=== PATIENT | male | born 1945 | race Caucasian/White ===

== ENCOUNTER 2017-10-22 09:05 | Outpatient (CLI) | payer MEDICARE ==
[2017-10-22 11:08] LABS: #Eosinphils 0.2 thou/uL (0.0-0.7); #Lymphocytes 0.7 thou/uL (1.20-3.40); #Monocytes 0.6 thou/uL (0.11-0.59); #Neutrophils 3.9 thou/uL (1.40-6.50); %Basophils 0.2 % (0.0-1.0); %Eosinophils 3.6 % (0.0-10.0); %Lymphocytes 13.7 % (21.0-51.0); %Monocytes 10.2 % (0.0-10.0); %Neutrophils 72.3 % (42.0-75.0); Hemoglobin 12.7 g/dL (14.0-18.0); Mean Corpuscular HGB CONC 33.2 g/dL (32.0-36.0); Mean Corpuscular Hemoglobin 30.3 pg (27.0-31.0); Mean Corpuscular Volume 91.3 fl (80.0-94.0); Platelet Count 65 thou/uL (130-400); RBC Distribution Width 12.6 % (11.5-14.5); Red Blood Cell (RBC) Count 4.19 mill/uL (4.70-6.10); White Blood Cell (WBC) Count 5.3 thou/uL (4.8-10.8)
[2017-10-22 11:29] LABS: Anion Gap 7 mmol/L (10-20); BUN (Urea Nitrogen) 16 mg/dL (8.4-25.7); Calc. Creatinine Clearance 0 mL/min (70-130); Calcium 9.1 mg/dL (7.8-10.44); Carbon Dioxide 25 mmol/L (23-31); Chloride 104 mmol/L (98-107); Estimated GFR-MDRD Greater than 90; Glucose 302 mg/dL (83-110); Potassium 4.4 mmol/L (3.5-5.1); Sodium 132 mmol/L (136-145)
--- NOTE | 2017-10-22 21:08 | EKG ---
Test Reason : Blood Pressure : / mmHG Vent. Rate : 058 BPM Atrial Rate : 058 BPM P-R Int : 266 ms QRS Dur : 082 ms QT Int : 462 ms P-R-T Axes : 057 014 131 degrees QTc Int : 453 ms Sinus bradycardia with 1st degree A-V block Minimal voltage criteria for LVH, may be normal variant ST elevation consider inferior injury or acute infarct (doubtul) with marked T wave changes anterolat erally. Abnormal ECG When compared with ECG of 17-NOV-2016 12:14, No significant change was found Confirmed by KALYAN VILLAGOMEZ ([id number]) on 10/22/2017 9:08:18 PM Referred By: KAYKAY Confirmed By:KALYAN VILLAGOMEZ
== END 2017-10-22 09:06 | disposition home or self-care (01) ==
LOC: LABBT 09:05
PROVIDERS: ATTEND Surgery
DX: Z01.818 Encounter for other preprocedural examination (principal); K40.90 Unilateral inguinal hernia, without obstruction or gangrene, not specified as recurrent; R94.31 Abnormal electrocardiogram [ECG] [EKG]
CPT/HCPCS: 80048; 85025; 93005; 93010

== ENCOUNTER 2017-10-23 05:49 | Day surgery (SDC) | payer MEDICARE ==
[2017-10-22 09:31] VITALS: BMI 22.7
[2017-10-23] MEDS ORDERED: CEFAZOLIN/Water 2 GM/20 ML SYRINGE ONE (06:05)
[2017-10-23] MEDS ORDERED: HYDROmorphone 0.5 MG/0.5 ML SYRINGE ONE (06:07)
[2017-10-23] MEDS ORDERED: Fentanyl 100 MCG/2 ML VIAL ONE (06:07)
[2017-10-23] MEDS ORDERED: Bupivacaine PF 0.5% 30 ML VIAL ONE (06:49)
[2017-10-23] MEDS ORDERED: Bupivacaine 0.25% HCL 30 ML VIAL ONE (06:49)
[2017-10-23] MEDS ORDERED: Lidocaine 2% 10 ML INJ ONE (06:49)
[2017-10-23] MEDS ORDERED: Scopolamine 1.5 mg/72 hour Patch ONE (07:43)
--- NOTE | 2017-10-23 11:18 | OP ---
DATE OF PROCEDURE: 10/23/2017 PREOPERATIVE DIAGNOSIS: Left inguinal hernia. POSTOPERATIVE DIAGNOSIS: Left inguinal hernia. PROCEDURE: Left inguinal hernia repair with mesh. SURGEON: Leonard Aparicio M.D. ANESTHESIA: General. ESTIMATED BLOOD LOSS: Minimal. COMPLICATIONS: None. SPECIMEN: None. FINDINGS: Left inguinal hernia. TECHNIQUE: The patient was taken to the operating room, placed supine on the table. After general a nesthetic was obtained, his abdomen and groins are shaved, and draped in a sterile fashion. Straight incision made above the pubic tubercle and the left lower quadrant. Cautery dissected down through April's to expose the external oblique, external oblique fibers opened along the course of the exter nal ring. The contents of inguinal canal were dissected away from the backside of the inguinal ligam ent. The cord structures were mobilized on the pubic tubercle using a Olivia drain. Dissection sup erior medially on the cord showed there to be a large indirect hernia sac. It was transected distall y and a high ligation was performed proximally using silk suture. The stump is inverted back into th e abdominal cavity. The precut polypropylene mesh was brought into the sterile field. It was sewn d istally to the pubic tubercle, medially to the transverse arch, laterally to the shelving edge of ing uinal ligament using permanent braided suture, it was cut laterally to wrap around the internal ring and the 2 ends reapproximated at the shelving edging of inguinal ligament to reform the internal ring . The extra mesh is tucked back under the external oblique proximally. The wound was irrigated. Lo francisco anesthetic is applied. Tunneled catheter for postop pain threaded from above the incision, left on top of the mesh. External oblique is closed in 3-0 Vicryl. April's closed in 3-0 Vicryl. Skin was closed with running 4-0 Monocryl and Dermabond. The patient was en route to recovery in stable c ondition. All instrument counts, needle counts, lap counts are correct.
[2017-10-23] MEDS ORDERED: Ondansetron HCl/PF 4 MG/2 ML Vial ONE (13:37)
[2017-10-23] MEDS ORDERED: ePHEDrine/0.9% NaCl/PF SYRINGE 50 mg/10 ml ONE (13:37)
[2017-10-23] MEDS ORDERED: PROPOFOL 200 MG/20 ML VIAL ONE (13:37)
[2017-10-23] MEDS ORDERED: Succinylcholine Chloride 20 MG/ML 10 ml SYRINGE FS ONE (13:37)
[2017-10-23] MEDS ORDERED: Lidocaine 1% PF 5 ML VIAL ONE (13:37)
== END 2017-10-23 10:30 | disposition home or self-care (01) ==
LOC: SDC 05:49
PROVIDERS: ATTEND Surgery
PROC: 0YU60JZ Supplement Left Inguinal Region with Synthetic Substitute, Open Approach (ICD-10-PCS; principal; 2017-10-23)
DX: K40.90 Unilateral inguinal hernia, without obstruction or gangrene, not specified as recurrent (principal); K74.60 Unspecified cirrhosis of liver; K21.9 Gastro-esophageal reflux disease without esophagitis; I42.8 Other cardiomyopathies; E11.9 Type 2 diabetes mellitus without complications; E07.9 Disorder of thyroid, unspecified; Z87.891 Personal history of nicotine dependence; Z79.899 Other long term (current) drug therapy; Z79.84 Long term (current) use of oral hypoglycemic drugs; Z98.890 Other specified postprocedural states
CPT/HCPCS: 49505; 82962; A4306; C1781; 36416; J0131; J1170; J2001; J2405; J2704; J3010; S0020

== ENCOUNTER 2018-01-31 10:18 | Outpatient (CLI) | payer MEDICARE ==
[2018-01-31] MEDS ORDERED: Gadobenate Dimeglumine 529 MG/1 ML (20ML VIAL) ONE (13:14)
== END 2018-01-31 10:19 | disposition home or self-care (01) ==
LOC: BICMRI 10:18
PROVIDERS: ATTEND Internal Medicine Gastroenterology
DX: K74.60 Unspecified cirrhosis of liver (principal); R16.1 Splenomegaly, not elsewhere classified
CPT/HCPCS: 74183; A9579

== ENCOUNTER 2018-09-23 09:03 | Emergency (ER) | payer MEDICARE ==
[2018-09-23 09:56] LABS: Mean Corpuscular HGB CONC 32.9 g/dL (32.0-36.0); Mean Corpuscular Hemoglobin 28.3 pg (27.0-31.0); Mean Platelet Volume 9.3 fL (7.4-10.4); Platelet Count 59 thou/uL (130-400); RBC Distribution Width 15.1 % (11.5-14.5); Red Blood Cell (RBC) Count 4.26 mill/uL (4.70-6.10); White Blood Cell (WBC) Count 9.3 thou/uL (4.8-10.8)
[2018-09-23 10:15] LABS: ALT (SGPT) 29 U/L (8-55); AST (SGOT) 33 U/L (5-34); Albumin 3.1 g/dL (3.4-4.8); Alkaline Phosphatase 155 U/L (40-150); Anion Gap 12 mmol/L (10-20); BUN (Urea Nitrogen) 21 mg/dL (8.4-25.7); Bilirubin, Total 0.9 mg/dL (0.2-1.2); Calc. Creatinine Clearance 0 mL/min (70-130); Calcium 8.8 mg/dL (7.8-10.44); Carbon Dioxide 21 mmol/L (23-31); Chloride 103 mmol/L (98-107); Estimated GFR-MDRD 71; Globulin 3.8 g/dL (2.4-3.5); Glucose 288 mg/dL (83-110); Potassium 3.8 mmol/L (3.5-5.1); Protein, Total 6.9 g/dL (5.8-8.1); Sodium 132 mmol/L (136-145)
[2018-09-23 10:17] LABS: #Lymphocytes 0.7 thou/uL (1.20-3.40); #Monocytes 0.9 thou/uL (0.11-0.59); #Neutrophils 7.6 thou/uL (1.40-6.50); %Basophils 0.2 % (0.0-1.0); %Eosinophils 0.1 % (0.0-10.0); %Lymphocytes 7.2 % (21.0-51.0); %Monocytes 10.2 % (0.0-10.0); %Neutrophils 82.3 % (42.0-75.0); Anisocytosis SLIGHT = 6-15 cells (100X) (0-5/hpf); MDiff Complete? YES; Platelet Morphology Comment Appears Decreased
--- NOTE | 2018-09-23 10:20 | RAD ---
PA AND LATERAL VIEWS CHEST: Date: 09/23/18 HISTORY: Cough. FINDINGS: The heart size is normal. The lungs are expanded without focal areas of consolidation, pneumothoraces , or pleural effusions. No acute osseous abnormalities are seen. IMPRESSION: No radiographic evidence of acute cardiopulmonary process. POS: [facility]
== END 2018-09-23 10:51 | disposition home or self-care (01) ==
LOC: ERS 09:03
DX: J10.1 Influenza due to other identified influenza virus with other respiratory manifestations (principal); E11.9 Type 2 diabetes mellitus without complications; Z79.899 Other long term (current) drug therapy; Z79.84 Long term (current) use of oral hypoglycemic drugs
CPT/HCPCS: 36415; 36416; 71046; 80053; 85025; 87804

== ENCOUNTER 2018-09-28 20:20 | Inpatient (IN) | payer MEDICARE ==
[~2018-09-28 20:20] MED LIST: ISOVUE-370 76%-LOCM 1 ML ONE
--- NOTE | 2018-09-28 20:58 | RAD ---
CHEST ONE VIEW: 09/28/18 HISTORY: Headache, diarrhea, weakness. Confused. COMPARISON: 09/23/18. FINDINGS: Monitor leads overlie the chest. Heart size is within normal limits. The lungs are clear. No pneumoni a, edema, or pleural effusion. IMPRESSION: No acute intrathoracic disease. POS: [facility]
[2018-09-28 21:06] LABS: INR-International Normal Ratio 1.5; PTT 45.5 SEC (22.9-36.1); Prothrombin Time 18.2 SEC (12.0-14.7)
--- NOTE | 2018-09-28 21:10 | CT ---
CT BRAIN: 09/28/18 HISTORY: Headache. Confusion. Noncontrast enhanced CT images of the brain obtained. Brain and bone windows obtained. Brain and bone windows obtained. CT images of the brain demonstrate the brain to be unremarkable. No evidence of intracranial masses, hemorrhages, strokes or contusions seen. Ventricles are of normal size. IMPRESSION: Normal CT brain. POS: [facility]
[2018-09-28 21:14] LABS: ALT (SGPT) 114 U/L (8-55); AST (SGOT) 69 U/L (5-34); Albumin 2.9 g/dL (3.4-4.8); Alkaline Phosphatase 205 U/L (40-150); Anion Gap 15 mmol/L (10-20); BUN (Urea Nitrogen) 74 mg/dL (8.4-25.7); Bilirubin, Total 1.6 mg/dL (0.2-1.2); Calc. Creatinine Clearance 0 mL/min (70-130); Calcium 9.3 mg/dL (7.8-10.44); Carbon Dioxide 14 mmol/L (23-31); Chloride 105 mmol/L (98-107); Estimated GFR-MDRD 29; Globulin 3.9 g/dL (2.4-3.5); Glucose 170 mg/dL (83-110); Lipase 23 U/L (8-78); Potassium 3.5 mmol/L (3.5-5.1); Protein, Total 6.8 g/dL (5.8-8.1); Sodium 130 mmol/L (136-145)
[2018-09-28] MEDS ORDERED: Ondansetron PF 4 MG/2 ML Vial ONE (21:14)
[2018-09-28 21:16] LABS: Anisocytosis SLIGHT = 6-15 cells (100X) (0-5/hpf); Band 14 % (5-11); Lymphocytes 6 % (21-51); MDiff Complete? YES; Mean Corpuscular HGB CONC 31.8 g/dL (32.0-36.0); Mean Corpuscular Hemoglobin 27.4 pg (27.0-31.0); Mean Corpuscular Volume 86.2 fL (78.0-98.0); Mean Platelet Volume 10.2 fL (7.4-10.4); Monocytes 6 % (0-10); Neutrophil 74 % (42-75); Platelet Count 65 thou/uL (130-400); Platelet Morphology Comment Appears Decreased; RBC Distribution Width 15.3 % (11.5-14.5); Red Blood Cell (RBC) Count 5.09 mill/uL (4.70-6.10); White Blood Cell (WBC) Count 16.4 thou/uL (4.8-10.8)
--- NOTE | 2018-09-28 21:32 | CT ---
CONTRAST ENHANCED CT IMAGES ABDOMEN AND PELVIS 09/28/18 HISTORY: Followup flu, diarrhea, weakness. Contrast enhanced CT images of the abdomen and pelvis is obtained after administration of IV contrast . Unfortunately oral contrast was not given. CT images demonstrate the lung bases to be unremarkable. No evidence of free intraperitoneal air seen . A moderate amount of free fluid see in the pelvis. A small amount seen in the abdomen. The liver is slightly heterogeneous in density and somewhat nodular especially involving the left hep atic lobe. The pancreas is atrophied. The gallbladder is partially contracted. There is massive splenomegaly. The spleen has three dimensional measurements of 8.9 x 14.6 x 20.3 cm. Some enlarged lymph nodes seen posterior to the greater curvature of the stomach. Some celiac lympha denopathy also present. The left kidney is unremarkable. The right kidney demonstrates marked atrophy of the lower pole of th e right kidney. The upper pole is more of normal size. No dilated loops of small bowel seen. There is abnormal thickening of the descending colon concerning for colitis extending to the sigmoid colon an d rectum. IMPRESSION: 1. Massive splenomegaly. 2. Free intraperitoneal and pelvic fluid. 3. Marked thickening of the descending colon concerning for colitis. POS: [facility]
[2018-09-28] MEDS ORDERED: Fentanyl 100 MCG/2 ML VIAL ONE (22:53)
[2018-09-28] MEDS ORDERED: metroNIDAZOLE 500 MG/100 ML BAG ONE (22:53)
[2018-09-28 23:25] LABS: Bilirubin Negative (Negative); Blood, Urine Negative (Negative); Clarity CLEAR (Clear); Glucose, Urine (Dipstick) Negative (Negative); Leukocyte Negative (Negative); Nitrite Negative (Negative); Protein, Urine (Dipstick) 30 mg/dL (Neg-Trace); Urobilinogen 0.2 mg/dL (0.2-1.0); pH, Urine 5.5 (5.0-9.0)
[2018-09-28 23:27] LABS: Specific Gravity, Urine 1.046 (1.002-1.036)
[2018-09-29] MEDS ORDERED: Ondansetron ODT 4 MG TAB SL PRN (02:09)
[2018-09-29] MEDS ORDERED: Ondansetron PF 4 MG/2 ML Vial IVP PRN ×2 (02:09→08:10)
[2018-09-29] MEDS ORDERED: Sodium Chloride 0.9% 1,000 ML IV SCH ×2 (02:15→08:15)
[2018-09-29 06:27] LABS: ALT (SGPT) 82 U/L (8-55); AST (SGOT) 46 U/L (5-34); Albumin 2.1 g/dL (3.4-4.8); Alkaline Phosphatase 143 U/L (40-150); Anion Gap 13 mmol/L (10-20); BUN (Urea Nitrogen) 66 mg/dL (8.4-25.7); Bilirubin, Total 1.2 mg/dL (0.2-1.2); Calc. Creatinine Clearance 32 mL/min (70-130); Calcium 8.2 mg/dL (7.8-10.44); Carbon Dioxide 13 mmol/L (23-31); Chloride 111 mmol/L (98-107); Estimated GFR-MDRD 38; Glucose 144 mg/dL (83-110); Phosphorus 4.6 mg/dL (2.3-4.7); Potassium 3.4 mmol/L (3.5-5.1); Protein, Total 5.1 g/dL (5.8-8.1); Sodium 134 mmol/L (136-145)
[2018-09-29 07:05] LABS: Vitamin B12 Greater than 2000 pg/mL (211-911)
[2018-09-29] MEDS ORDERED: Dextrose 5% in Water 1,000 ML IV PRN (08:10)
[2018-09-29] MEDS ORDERED: Ondansetron ODT 4 MG TAB PO PRN (08:10)
[2018-09-29] MEDS ORDERED: Dextrose 50% Abboject 50 ML SYRINGE SLOW IVP PRN (08:10)
[2018-09-29] MEDS ORDERED: Levothyroxine Sodium 100 MCG TAB PO SCH (08:15)
[2018-09-29 09:15] LABS: Band 10 % (5-11); Hemoglobin 10.8 g/dL (14.0-18.0); Lymphocytes 6 % (21-51); MDiff Complete? YES; Mean Corpuscular HGB CONC 31.7 g/dL (32.0-36.0); Mean Corpuscular Hemoglobin 27.3 pg (27.0-31.0); Mean Corpuscular Volume 86.2 fL (78.0-98.0); Mean Platelet Volume 10.3 fL (7.4-10.4); Metamyelocyte 1 % (0-0); Monocytes 8 % (0-10); Neutrophil 75 % (42-75); Platelet Count 43 thou/uL (130-400); RBC Distribution Width 15.1 % (11.5-14.5); Red Blood Cell (RBC) Count 3.96 mill/uL (4.70-6.10)
[2018-09-29] MEDS: Famotidine/PF 20 mg/2ml Vial SLOW IVP SCH (09:33)
[2018-09-29] MEDS: Potassium Chloride 40 MEQ in Sodium Chloride 0.45% 1,000 ML IV SCH ×2 (09:34→21:35)
[2018-09-29] MEDS: Ciprofloxacin Lactate/D5W 200 MG in Premix Bag 1 BAG IVPB SCH ×2 (09:35→21:36)
--- NOTE | 2018-09-29 10:56 | HP ---
PRIMARY CARE PROVIDER: Dr. Shayan Brown. CHIEF COMPLAINT: Abdominal pain, diarrhea, and general weakness. HISTORY OF PRESENT ILLNESS: This is a 73-year-old male, who presents to [facility] complaining of progressive weakness, diarrhea, nausea, and vomiting over the last 3 to 4 days. The history is obtained after review of electronic medical record in the emergency room as well as discussions with the patient's at the bedside. The patient has been confused and unable to provide a coherent history. The patient was recently diagnosed with influenza in the last 2 weeks, symptomatically managed at home, and did not take a prescription for Tamiflu. The patient had fever, chills, and rigors, and subsequently improved with supportive management at home. The patient developed increasing weakness, decreased oral intake as well as nausea and vomiting. The patient had complained of increasing abdominal pain with the diarrhea with multiple loose stools noted per . The patient became increasingly weak, needing assistance for transfers and short distance ambulation, previously functional of all activities of daily living and playing golf regularly. No specific history of recent travel, family members with similar symptoms, or change to dietary habits. The reports no specific change to his chronic medication regimen. No noted blood in the stool or hematemesis or dysuria. In the emergency room, the patient underwent extensive evaluation including CT of the abdomen and pelvis as well as CT of the brain showing no acute intracranial process. CT of the abdomen and pelvis revealing descending colitis and in the emergency room, the patient received ciprofloxacin, Flagyl, fentanyl, intravenous normal saline, and Zofran. The patient was transferred to the medical floor for further evaluation. PAST MEDICAL HISTORY: 1. Non-alcoholic cirrhosis. 2. Diabetes mellitus type 2 insulin requiring. 3. Hypertrophic cardiomyopathy. 4. History of dysphagia. 5. Left inguinal hernia. 6. Esophageal varices. 7. Gastroesophageal reflux. 8. Splenomegaly, chronic. 9. Hypothyroidism. PAST SURGICAL HISTORY: 1. Status post EGD. 2. Status post shoulder repair. 3. Status post umbilical and right inguinal hernia repair. 4. Status post skin cancer removal from the knee and nose. 5. Status post left inguinal hernia repair. CURRENT MEDICATIONS: 1. Vitamin D3 of 2000 units p.o. daily. 2. Ferrous sulfate 325 mg p.o. daily p.r.n. 3. Levemir 10 units subcutaneously q.a.m. 4. Levothyroxine 100 mcg p.o. daily. 5. Nadolol 10 mg p.o. q.a.m. 6. Omeprazole 20 mg p.o. b.i.d. 7. Repaglinide 2 mg p.o. t.i.d. 8. Spironolactone 50 mg p.o. q.a.m. ALLERGIES: NO KNOWN DRUG ALLERGIES. FAMILY HISTORY: Positive for hypertrophic cardiomyopathy and diabetes mellitus. SOCIAL HISTORY: The patient is . Resides in [facility]. Retired. No current alcohol, tobacco, or illicit drug use. Previously functional of all activities of daily living. REVIEW OF SYSTEMS: Unobtainable as the patient with encephalopathy due to severe dehydration and infection. PHYSICAL EXAMINATION: VITAL SIGNS: Currently, blood pressure 89/46, pulse 62, respiratory rate 18, temperature 97.5 degrees Fahrenheit, and O2 saturation 95% on room air. GENERAL APPEARANCE: This is a 73-year-old male, agitated, opens eyes and responds briefly to questions, in mild to moderate distress. HEENT: Pupils are equal, round, reactive to light and accommodation. Extraocular muscles are intact. No scleral icterus. No conjunctival injection. Nares patent. OP is clear. Oral mucosa dry. NECK: Supple. No cervical adenopathy. No thyromegaly. No carotid bruits. No JVD appreciated. Cervical spine with full active and passive range of motion. No meningeal signs noted. CHEST: Lungs are clear to auscultation bilaterally. CARDIOVASCULAR: S1 and S2 without noted murmur, rub, or gallop. ABDOMEN: Distended with tenderness to palpation diffusely. Bowel sounds are positive in all 4 quadrants. No palpable mass. Positive splenomegaly. EXTREMITIES: Warm and dry with poor skin turgor. Pulses palpable distally at the dorsalis pedis, posterior tibial, and popliteal arteries bilaterally. Capillary refill less than 2 seconds. NEUROLOGIC: Cranial nerves 2 through 12 are grossly intact. Alert and oriented x1 to person. States a few words to direct questioning. Not observed ambulatory during this exam. PERTINENT LABORATORY DATA AND X-RAY FINDINGS: Sodium 138, potassium 3.5, chloride 105, CO2 of 14, BUN 74, creatinine 2.23, estimated GFR 29, glucose 170, calcium 9.3, phosphorus 4.6, magnesium 2.0, total bilirubin 1.6, AST 69, ALT 114, alkaline phosphatase 205. Serum ammonia level 43. Troponin negative x1. Albumin 2.9. Lipase 23. Vitamin B12 level greater than 2000, folate 9.20. TSH 0.60. CBC showed a white blood cell count of 16.4, hemoglobin 14, hematocrit 44, platelet count 65,000 with 74% neutrophils, 14% bands. PT 18.2, INR 1.5, PTT 45.5. Urinalysis dated 09/28/2018, shows specific gravity of 1.046. Portable chest x-ray dated 09/28/2018, showed no acute cardiopulmonary process. CT of the abdomen and pelvis dated 09/28/2018, showed moderate free fluid in the pelvis. Massive splenomegaly noted with dimensions of 8.9 x 14.6 x 20.3 cm. Marked thickening of the descending colon concerning for colitis. CT of the brain without contrast dated 09/28/2018, showed no acute intracranial process. EKG dated 09/28/2018, by my interpretation shows sinus mechanism with heart rates in the 60s. Normal R-wave progression noted in the precordial leads. Baseline artifact noted. Left axis deviation. ASSESSMENT AND PLAN: 1. Infectious colitis. Suspected given the CT imaging findings and clinical presentation. We will continue ciprofloxacin 200 mg IV q.12 hours with additional Flagyl 500 mg IV q.8 hours. We will consult GI Service for any further recommendations and surveillance during the hospital course. Check stool studies to include Clostridium difficile antigen and toxin as well as Campylobacter. 2. Acute kidney injury. Suspect secondary to volume depletion in conjunction with #1. Avoid nephrotoxic agents and limit contrast exposure. Continue IV fluids and monitor serial creatinine. 3. Acute metabolic encephalopathy. Suspect multifactorial including infectious process with dehydration. We will continue supportive management as outlined previously. CT imaging of the brain unremarkable. Continue to monitor mental status exam. Supportive management. 4. Hyponatremia. Suspect secondarily to poor oral intake in relation to #1. We will continue IV fluids with normal saline and monitor serial sodium. 5. Non-alcoholic cirrhosis. Continue supportive management. Hold spironolactone. Consult GI Service for any further recommendations. Appears compensated currently. 6. Hypotension. Suspect multifactorial including dehydration. We will continue IV fluids and encourage increased oral intake of free water. Hold all antihypertensive medications. Continue serial blood pressure monitoring. 7. Prophylaxis. SCDs while in bed. Pepcid 20 mg IV q.12 hours. PT evaluation for functional assessment. 8. Code status is full. Surrogate medical decision maker is the patient's spouse. Job ID: [id number]
[2018-09-29] MEDS: metroNIDAZOLE 500 MG in Premix Bag 1 BAG IVPB SCH ×3 (11:03→21:39)
--- NOTE | 2018-09-29 17:04 | CON ---
DATE OF CONSULTATION: 09/29/2018 REASON FOR CONSULTATION: Colitis and cirrhosis. HISTORY OF PRESENT ILLNESS: Deep Rivera is a 73-year-old gentleman seen in the outpatient setting by my GI colleague, Dr. Linda Beltran, she follows him for NEAL cirrhosis. This is fairly well compensated. She has him on spironolactone 50 mg once daily. He has had banding of esophageal varices in the past, but last EGD in September 2017 showed only small esophageal varices and he is on prophylaxis with nadolol for this. He has been up to date in current on all of his surveillance imaging including an MRI in January 2018 showing cirrhosis, but no mass, no ascites visualized at that time, his last abdominal ultrasound in July 2018 again just shows cirrhosis, but no liver lesions. He did have a small amount of ascites at that time and he does have chronic splenomegaly. A couple of weeks ago, the patient was having fevers and chills and myalgias and fatigue and was diagnosed with influenza. He had some initial improvement, but now over the past 4 to 5 days, he has had new symptoms of progressive weakness, some complaints of generalized abdominal pain, nausea, though no vomiting and then diarrhea. The diarrhea has been watery and quite frequent. No melena or hematochezia. Along with this, he has become progressively confused. This prompted his presentation and admission last night. Lab evaluation demonstrated signs of dehydration with acute kidney injury. BUN 66 and creatinine 1.75. LFTs are slightly elevated with total bilirubin 1.2. He had a leukocytosis with WBC 16.[address] of the abdomen and pelvis demonstrated thickening in the descending and sigmoid colon as well as a moderate amount of free fluid in the pelvis. Head CT shows no acute processes and chest x-ray also shows no acute processes. The patient was started on ciprofloxacin and Flagyl and is being supported with IV fluids. He remains confused and essentially non-conversant, though I note his ammonia level is normal at 45. REVIEW OF SYSTEMS: Unable to obtain due to the patient's altered mental status. PAST MEDICAL HISTORY: 1. NEAL cirrhosis, well compensated to this point. 2. Esophageal varices, small, last EGD September 2017, on nadolol. 3. Hypertrophic cardiomyopathy. 4. Diabetes type 2, requiring insulin. 5. Left inguinal hernia. 6. GERD. 7. Chronic splenomegaly. 8. Hypothyroidism. 9. Shoulder repair. 10. Umbilical and right inguinal hernia repair. 11. Skin cancer removal from the knee and the nose. 12. Left inguinal hernia repair. ALLERGIES: NO KNOWN DRUG ALLERGIES. OUTPATIENT MEDICATIONS: Vitamin D3 2000 units daily, ferrous sulfate 325 mg daily p.r.n., Levemir insulin 10 mg subcu every morning, levothyroxine 100 mcg daily, nadolol 10 mg daily, omeprazole 20 mg b.i.d., repaglinide 2 mg t.i.d., and spironolactone 50 mg every morning. FAMILY HISTORY: Positive for hypertrophic cardiomyopathy. SOCIAL HISTORY: No current alcohol, tobacco, or drug use. PHYSICAL EXAMINATION: VITAL SIGNS: Temperature 98.1, pulse 65, blood pressure 100/65, and 97% oxygen saturation on room air. GENERAL: A 73-year-old man appearing chronically ill, lying in bed, in no distress. MENTAL: He is encephalopathic. He responds to voice and tactile stimulation, but he does not answer questions appropriately and his speech is mumbled. He is calm and not agitated. SKIN: No jaundice. No rashes were palpable. HEENT: Eyes, no scleral icterus. Extraocular movements are intact. ENT, mucous membranes are moist. No oral lesions. LYMPHATIC: No submandibular or supraclavicular lymphadenopathy. THYROID: Nontender to palpation. HEART: Regular rate and rhythm. LUNGS: Clear to auscultation bilaterally. ABDOMEN: Mild distention. Dull to percussion on the flanks. Bowel sounds are present. Soft. Some tenderness to palpation in the left side of the abdomen, but no guarding or rebound tenderness. EXTREMITIES: No peripheral edema. VESSELS: Radial pulses 2+ bilaterally. NEUROLOGIC: The patient does not follow commands, but he moves all extremities. LABORATORY STUDIES: WBC 9.0, hemoglobin 10.8, and platelets are 43. INR 1.5. Sodium 134, potassium 3.4, BUN 66, creatinine 1.75 down from 2.23 on admission yesterday, glucose 138, total bilirubin 1.2, alkaline phosphatase 143, AST 46, ALT 82, albumin 2.1. Vitamin B12 is greater than 2000. Folate is 9.2. TSH 0.6. Ammonia is only 43. IMAGING STUDIES: Brain CT is normal. Chest x-ray shows no acute processes. CT of the abdomen and pelvis demonstrates nodular liver. There is a moderate amount of free fluid in the pelvis. There is chronic splenomegaly. There is thickening in the descending and sigmoid colon. ASSESSMENT AND PLAN: 1. Left-sided colitis, acute. This likely represents either infectious or ischemic colitis. Agree with the empiric ciprofloxacin and Flagyl as well as supportive care with IV fluids. Stool studies have been ordered and we will await these. Regardless, expect resolution of this process over the next several days. 2. Encephalopathy. This is concurrent with his significant diarrhea and dehydration. Note, his ammonia level is normal. I do think it would be reasonable to start him on lactulose 20 g twice daily along with other supportive cares. 3. Acute kidney injury is secondary to dehydration. Creatinine has improved overnight with IV fluids. 4. Non-alcoholic steatohepatitis cirrhosis, previously well compensated. The patient does have some mild elevation in his INR and total bilirubin as well as creatinine now. Hopefully, his liver will not tip into decompensation with this episode. Job ID: [id number]
[2018-09-29] MEDS ORDERED: Lorazepam 2 MG/ML VIAL ONE (17:41)
[2018-09-29] MEDS: Acetaminophen 500 MG TAB PO PRN (21:35)
[2018-09-29] MEDS ORDERED: Haloperidol Lactate 5 MG/ML VIAL ONE (22:10)
[2018-09-29] MEDS: Haloperidol Lactate 5 MG/ML VIAL IM PRN (22:12)
[2018-09-29] MEDS: Lorazepam 2 MG/ML VIAL SLOW IVP PRN (23:00)
[2018-09-30] MEDS: Haloperidol Lactate 5 MG/ML VIAL IM PRN (02:46)
[2018-09-30] MEDS: Lorazepam 2 MG/ML VIAL SLOW IVP PRN ×3 (04:55→20:11)
[2018-09-30] MEDS: Levothyroxine Sodium 100 MCG TAB PO SCH (04:58)
[2018-09-30] MEDS: metroNIDAZOLE 500 MG in Premix Bag 1 BAG IVPB SCH (04:58)
[2018-09-30] MEDS: Potassium Chloride 40 MEQ in Sodium Chloride 0.45% 1,000 ML IV SCH ×3 (05:09→21:58)
[2018-09-30] MEDS: HumaLOG 300 UNITS/3 ML VIAL SC PRN ×2 (06:20→20:09)
[2018-09-30] MEDS: Ciprofloxacin Lactate/D5W 200 MG in Premix Bag 1 BAG IVPB SCH (07:54)
[2018-09-30] MEDS: Famotidine/PF 20 mg/2ml Vial SLOW IVP SCH (07:54)
[2018-09-30 08:50] LABS: ALT (SGPT) 68 U/L (8-55); AST (SGOT) 55 U/L (5-34); Albumin 2.2 g/dL (3.4-4.8); Alkaline Phosphatase 152 U/L (40-150); Anion Gap 12 mmol/L (10-20); BUN (Urea Nitrogen) 55 mg/dL (8.4-25.7); Bilirubin, Total 1.6 mg/dL (0.2-1.2); Calc. Creatinine Clearance 45 mL/min (70-130); Calcium 8.6 mg/dL (7.8-10.44); Carbon Dioxide 12 mmol/L (23-31); Chloride 117 mmol/L (98-107); Estimated GFR-MDRD 56; Globulin 3.1 g/dL (2.4-3.5); Glucose 241 mg/dL (83-110); Potassium 3.9 mmol/L (3.5-5.1); Protein, Total 5.3 g/dL (5.8-8.1); Sodium 137 mmol/L (136-145)
[2018-09-30] MEDS: Nadolol 40 MG TAB PO SCH ×2 (09:28→09:33)
[2018-09-30] MEDS ORDERED: Azithromycin 250 MG TAB PO SCH (10:15)
--- NOTE | 2018-09-30 10:25 | PRG ---
DATE OF SERVICE: 09/30/2018 SUBJECTIVE: Mr. Rivera was very agitated last night and had to be put in restraints. Mental status has not really improved. This morning, he is somnolent and did not really responding to questioning. He did have several bloody bowel movements last night as well. He remained hemodynamically stable. OBJECTIVE: VITAL SIGNS: Temperature 98.1, pulse 73, blood pressure 104/63, 97% oxygen saturation on room air. GENERAL: Somnolent, not arousable, does withdrawal to pain stimuli. HEART: Regular rate and rhythm. LUNGS: Clear to auscultation bilaterally. ABDOMEN: Bowel sounds are present. Soft, nontender to palpation. EXTREMITIES: No peripheral edema. LABORATORY STUDIES: Still awaiting CBC from this morning. Yesterday morning, hemoglobin was 10.8, WBC 9.0, platelets 43. From admission, INR was 1.5. From this morning, sodium 137, potassium 3.9, BUN down to 55, creatinine down to 1.25, glucose 241, total bilirubin up to 1.6, alkaline phosphatase 152, AST 55, ALT 68, albumin is 2.2. Stool studies demonstrate negative Clostridium difficile antigen and toxin, but Campylobacter antigen is positive. Fecal lactoferrin is elevated and fecal occult blood is also positive. ASSESSMENT AND PLAN: 1. Campylobacter colitis, severe. The positive Campylobacter antigen and clinical course do indeed seem consistent with acute Campylobacter colitis. Cannot completely rule out ischemic colitis at this point as well. At any rate, this is a severe episode given his underlying liver disease and gross hematochezia. I have switched his antibiotics to oral azithromycin 500 mg daily for 3 days. Depending on clinical response, this might be extended out to a 7-day course. 2. Encephalopathy. This is concurrent with his acute Campylobacter infection. Note the ammonia level was normal, but I would like to continue him on lactulose 20 g twice daily along with other supportive cares. 3. Acute kidney injury secondary to dehydration. Creatinine has improved. 4. Acute blood loss anemia. We are still awaiting repeat CBC from this morning. Trend H and H and transfuse if needed. 5. Nonalcoholic steatohepatitis cirrhosis, previously well compensated, otherwise stable. Job ID: [id number]
[2018-09-30 10:34] LABS: Band 1 % (5-11); Hemoglobin 11.1 g/dL (14.0-18.0); Lymphocytes 13 % (21-51); MDiff Complete? YES; Mean Corpuscular HGB CONC 33.2 g/dL (32.0-36.0); Mean Corpuscular Volume 84.4 fL (78.0-98.0); Mean Platelet Volume 9.4 fL (7.4-10.4); Monocytes 9 % (0-10); Neutrophil 77 % (42-75); Platelet Count 68 thou/uL (130-400); Platelet Morphology Comment Appears Decreased; RBC Distribution Width 15.8 % (11.5-14.5); Red Blood Cell (RBC) Count 3.95 mill/uL (4.70-6.10)
[2018-09-30] MEDS: Azithromycin 500 MG in Sodium Chloride 0.9% 250 ML 250 ML IVPB SCH (11:06)
--- NOTE | 2018-09-30 13:21 | PDOC.PN ---
- Subjective Encounter Start Date: 09/30/18 Encounter Start Time: 14:40 Subjective: Patient agitated all night, disorientated, unable to follow commands. - Objective Resuscitation Status - Order Detail: 09/29/18 08:02 Resuscitation Status Routine Resuscitation Status: FULL: Full Resuscitation MAR Reviewed: Yes Vital Signs & Weight: Vital Signs (12 hours) Temp Pulse Resp BP Pulse Ox 09/30/18 11:52 98.1 F 70 20 118/92 H 98 09/30/18 08:22 98.1 F 73 20 104/63 97 09/30/18 04:33 98.1 F 89 18 129/72 97 Weight Weight 136 lb 8 oz I&O: 09/29/18 09/30/18 10/01/18 06:59 06:59 06:59 Intake Total 773 Output Total 775 Balance -2 Result Diagrams: 09/30/18 08:00 09/30/18 08:00 Additional Labs: Accuchecks 09/30/18 09/30/18 09/29/18 11:08 04:32 20:12 POC Glucose 245 H 252 H 202 H 09/29/18 17:19 POC Glucose 160 H Phys Exam - Physical Examination no respiratory distress HEENT: PERRLA, moist MMs Respiratory: no wheezing, no rales, no rhonchi Cardiovascular: RRR, no significant murmur Gastrointestinal: soft, positive bowel sounds mild distension Neurological: non-focal, moves all 4 limbs Deviation from normal: sleepy, intermittently agitated and pulling at restraints , not vocal unable to follow commands Dx/Plan (1) Acute metabolic encephalopathy Code(s): G93.41 - METABOLIC ENCEPHALOPATHY Status: Acute Comment: likely multifactoral including colitis, dehydration, cirrhosis. Ammonia level normal but GI keeping on low dose lactulose to minimize this contributing factor. Will try dose of seroquel to help sleep tonight. (2) Colitis Code(s): K52.9 - NONINFECTIVE GASTROENTERITIS AND COLITIS, UNSPECIFIED Status : Acute Comment: with hemorrhage, due to campylobacter infection, on azithromycing, may have ischemic component as well (3) Intestinal infection due to Campylobacter coli Code(s): A04.5 - CAMPYLOBACTER ENTERITIS Status: Acute (4) Acute renal failure (ARF) Status: Acute Comment: due to volume depletion, creatinine resolving. (5) Liver cirrhosis secondary to nonalcoholic steatohepatitis (NEAL) Code(s): K75.81 - NONALCOHOLIC STEATOHEPATITIS (NEAL); K74.60 - UNSPECIFIED CIRRHOSIS OF LIVER Status: Chronic (6) Anemia due to blood loss, acute Code(s): D62 - ACUTE POSTHEMORRHAGIC ANEMIA Status: Acute Comment: H/H holding stable - Plan cont current plan of care, continue antibiotics Appreciate GI assistance. Will have speech therapy evaluate dysphagia. * . - Discharge Day Encounter end time: 14:50
[2018-10-01] MEDS: Levothyroxine Sodium 100 MCG TAB PO SCH (04:17)
[2018-10-01] MEDS: HumaLOG 300 UNITS/3 ML VIAL SC PRN ×2 (05:53→20:59)
[2018-10-01] MEDS: Famotidine/PF 20 mg/2ml Vial SLOW IVP SCH (07:23)
[2018-10-01 07:59] LABS: INR-International Normal Ratio 2.2; Prothrombin Time 24.3 SEC (12.0-14.7)
[2018-10-01 08:15] LABS: ALT (SGPT) 66 U/L (8-55); AST (SGOT) 51 U/L (5-34); Albumin 2.3 g/dL (3.4-4.8); Alkaline Phosphatase 168 U/L (40-150); Anion Gap 13 mmol/L (10-20); BUN (Urea Nitrogen) 41 mg/dL (8.4-25.7); Bilirubin, Total 1.5 mg/dL (0.2-1.2); Calc. Creatinine Clearance 54 mL/min (70-130); Calcium 9.1 mg/dL (7.8-10.44); Carbon Dioxide 12 mmol/L (23-31); Chloride 119 mmol/L (98-107); Estimated GFR-MDRD 68; Globulin 3.3 g/dL (2.4-3.5); Glucose 233 mg/dL (83-110); Potassium 4.9 mmol/L (3.5-5.1); Protein, Total 5.6 g/dL (5.8-8.1); Sodium 139 mmol/L (136-145)
[2018-10-01] MEDS ORDERED: Azithromycin 250 MG TAB PO SCH (09:00)
[2018-10-01] MEDS: Nadolol 40 MG TAB PO SCH (09:15)
[2018-10-01 09:29] LABS: Hemoglobin 12.4 g/dL (14.0-18.0); Mean Corpuscular HGB CONC 32.2 g/dL (32.0-36.0); Mean Corpuscular Hemoglobin 27.4 pg (27.0-31.0); Mean Corpuscular Volume 85.1 fL (78.0-98.0); Mean Platelet Volume 9.7 fL (7.4-10.4); Platelet Count 64 thou/uL (130-400); RBC Distribution Width 15.8 % (11.5-14.5); Red Blood Cell (RBC) Count 4.51 mill/uL (4.70-6.10)
[2018-10-01 09:30] LABS: Band 4 % (5-11); Lymphocytes 6 % (21-51); MDiff Complete? YES; Monocytes 5 % (0-10); Neutrophil 82 % (42-75); Platelet Morphology Comment Appears Decreased; RBC Morphology Normal; Reactive Lymphocytes 3 % (0-10)
[2018-10-01] MEDS: Azithromycin 500 MG in Sodium Chloride 0.9% 250 ML 250 ML IVPB SCH (10:04)
[2018-10-01] MEDS: Potassium Chloride 40 MEQ in Sodium Chloride 0.45% 1,000 ML IV SCH ×2 (10:07→20:59)
--- NOTE | 2018-10-01 14:53 | PQF ---
DATE: 10-01-18 ATTN: DR. AUSTIN AGUILAR Please exercise your independent, professional judgment in responding to the clarification form. Clinical indicators are provided on the bottom of this form for your review Please check appropriate box(es): [ ] Sepsis due to: (Infectious Campylobacter Colitis, etc.) [ ] SIRS due to non-infectious process (please specify etiology) [ ] with organ dysfunction [ ] without organ dysfunction [ ] Severe sepsis with acute organ dysfunction of: (Examples: encephalopathy, acute kidney failure, other) [ ] Localized infection without sepsis [X ] Other diagnosis ___Sepsis due to unkown source [ ] Unable to determine In addition, please specify: Present on Admission (POA): [X ] Yes [ ] No [ ] Unable to determine For continuity of documentation, please document condition throughout progress notes and discharge summary. Thank You. CLINICAL INDICATORS - SIGNS / SYMPTOMS / LABS ER DX: COLITIS, MUNIR, ASCITES, DEHYDRATION H&P 09-29-18: GENERALIZED WEAKNESS, CONFUSED AND UNABLE TO PROVIDE A COHERENT HX, RECENTLY DIAGNOSED WITH INFLUENZA IN THE LAST 2WKS, DECREASED ORAL INTAKE, NAUSEA, VOMITING H&P 09-29-18: INFECTIOUS COLITIS, MUNIR, ACUTE METABOLIC ENCEPHALOPATHY, HYPONATREMIA, HYPOTENSION PN DR. HERNANDEZ 09-30-18: ACUTE COLITIS , DUE TO CAMPYLOBACTER INFECTION, ON AZITHROMYCIN, MAY HAVE ISCHEMIC COMPONENT WELL wbc: 09-28-18: 16.4 09-29-18: 9.0 09-30-18: 13.0 10-01-18: 13.0 bands: 09-28-18: 14% BP: ER: 91/52, 96/61, 96/53 90/49M 89/46 RISK FACTORS: H&P 09-29-18: GENERALIZED WEAKNESS, CONFUSED AND UNABLE TO PROVIDE A COHERENT HX, RECENTLY DIAGNOSED WITH INFLUENZA IN THE LAST 2WKS, DECREASED ORAL INTAKE, NAUSEA, VOMITING H&P 09-29-18: INFECTIOUS COLITIS, MUNIR, ACUTE METABOLIC ENCEPHALOPATHY, HYPONATREMIA, HYPOTENSION ADVANCED AGE TREATMENTS: ER: CIPRO IV, IVF NS, FLAGYL IV, IVF NS MAR: 09-29-18 POTASSIUM CHLORIDE 1/2 NS, ZITHROMAX IV, (This form is maintained as a part of the permanent medical record) 2014 [employer]. All Rights Reserved [email or web address] Office: [phone] [facility]
--- NOTE | 2018-10-01 16:35 | PDOC.PN ---
- Subjective Encounter Start Date: 10/01/18 Encounter Start Time: 16:33 Mr. Rivera was seen today in follow-up he is still confused and in restraints. He seems a little worse today than on admission. - Objective Resuscitation Status - Order Detail: 09/29/18 08:02 Resuscitation Status Routine Resuscitation Status: FULL: Full Resuscitation MAR Reviewed: Yes Vital Signs & Weight: Vital Signs (12 hours) Temp Pulse Resp BP Pulse Ox 10/01/18 16:23 98.4 F 62 20 143/69 H 97 10/01/18 11:32 99.0 F 68 22 H 129/74 96 10/01/18 07:57 98.8 F 66 24 H 123/64 92 L Weight Weight 136 lb 8 oz I&O: 09/30/18 10/01/18 10/02/18 06:59 06:59 06:59 Intake Total 773 1811 Output Total 775 1325 16 Balance -2 486 -16 Result Diagrams: 10/01/18 07:13 10/01/18 07:13 Additional Labs: Accuchecks 10/01/18 10/01/18 09/30/18 11:38 05:24 20:10 POC Glucose 218 H 209 H 216 H 09/30/18 17:23 POC Glucose 202 H Phys Exam - Physical Examination HEENT: PERRLA Respiratory: no wheezing, no rales, no rhonchi, clear to auscultation bilateral Cardiovascular: RRR, no significant murmur, no rub Gastrointestinal: soft, non-tender, no distention, positive bowel sounds Musculoskeletal: pulses present, edema present Dx/Plan (1) Acute metabolic encephalopathy Code(s): G93.41 - METABOLIC ENCEPHALOPATHY Status: Acute Comment: likely multifactoral including colitis, dehydration, cirrhosis. Ammonia level normal but GI keeping on low dose lactulose to minimize this contributing factor. Will try dose of seroquel to help sleep tonight. (2) Acute renal failure (ARF) Status: Acute Comment: due to volume depletion, creatinine resolving. (3) Intestinal infection due to Campylobacter coli Code(s): A04.5 - CAMPYLOBACTER ENTERITIS Status: Acute (4) Liver cirrhosis secondary to nonalcoholic steatohepatitis (NEAL) Code(s): K75.81 - NONALCOHOLIC STEATOHEPATITIS (NEAL); K74.60 - UNSPECIFIED CIRRHOSIS OF LIVER Status: Chronic (5) Coagulopathy Status: Acute - Plan * Metabolic encephalopathy- ? Hepatic encephalopathy- it is noted that his ammonia level was normal a few days ago, however, he could have hepatic encephalopathy with a normal level. Lactulose was ordered but in reviewing his records, he only received a single dose on . He is not febrile, so sepsis is unlikely. His TSH was normal, and B-12 levels were actually elevated. Will try placing a DHT both for nutritional supplementation as well as to facilitate Lactulose administration. Will give a dose of Vitamin K prior to placement. Hopefully the placement will be successful, and then after he has had a few days of tube feeding and lactulose, we can re-assess. * Acute renal failure- improved * Campylobacter Colitis- continue Azithromycin * Cirrhosis compensated? * DM- blood glucose is stable
[2018-10-01] MEDS ORDERED: Phytonadione 10 MG in Sodium Chloride 0.9% 50 ML IVPB SCH (17:00)
--- NOTE | 2018-10-01 18:23 | RAD ---
ABDOMEN ONE VIEW: 10/01/18 HISTORY: Dobhoff tube placement. COMPARISON: None. FINDINGS/IMPRESSION: The Dobhoff tube is in place with the tip at the gastric antrum/first portion of duodenum. POS: [facility]
--- NOTE | 2018-10-01 18:29 | PRG ---
DATE OF SERVICE: 10/01/2018 SUBJECTIVE: Mr. Rivera has not had any improvement in his mental status. He remains somnolent and not really arousable to voice. He has been hemodynamically stable. Dobhoff tube placement is planned for later today with initiation of tube feeds and better delivery for lactulose, etc. He has had one bowel movement charted today, so diarrhea appears to be slowing down. OBJECTIVE: VITAL SIGNS: Temperature 98.4, pulse 62, blood pressure 143/69, 97% oxygen saturation on room air. GENERAL: Encephalopathic, unresponsive to voice. No acute distress. HEART: Regular rate and rhythm. Systolic murmur. LUNGS: Clear to auscultation bilaterally. ABDOMEN: Mild distention. Dull to percussion on the flanks. Soft and nontender to palpation. EXTREMITIES: No peripheral edema. LABORATORY STUDIES: WBC 13.0, hemoglobin 12.4, and platelets 64. INR up to 2.2. Sodium 139, potassium 4.9, BUN 41, creatinine 1.06, total bilirubin 1.5, alkaline phosphatase 168, AST 51, ALT 66. ASSESSMENT AND PLAN: 1. Campylobacter colitis, currently receiving azithromycin. Would probably extend this out to a 7-day course. 2. Encephalopathy. This is probably multifactorial. Note, the ammonia level is normal, but please give lactulose 20 g at least twice per day. 3. Acute kidney injury secondary to dehydration, creatinine continues to improve. 4. Acute blood loss anemia, this is stabilized. Hemoglobin currently back up to 12.4. 5. Nonalcoholic steatohepatitis cirrhosis, previously well compensated. It appears the patient is having a decompensation of his cirrhosis. Note, the INR increasing up to 2.2. He has developed encephalopathy. He also does have some ascites, likely as a result of IV fluid resuscitation with liver decompensation. I am hopeful that with treatment of underlying condition, his liver function will improve back to baseline. Job ID: [id number]
[2018-10-02] MEDS: HumaLOG 300 UNITS/3 ML VIAL SC PRN ×4 (06:12→21:51)
[2018-10-02] MEDS: Levothyroxine Sodium 100 MCG TAB PO SCH (06:12)
[2018-10-02] MEDS: Potassium Chloride 40 MEQ in Sodium Chloride 0.45% 1,000 ML IV SCH ×2 (08:15→18:54)
[2018-10-02 08:49] LABS: Anion Gap 14 mmol/L (10-20); BUN (Urea Nitrogen) 43 mg/dL (8.4-25.7); Band 1 % (5-11); Calc. Creatinine Clearance 50 mL/min (70-130); Calcium 9.1 mg/dL (7.8-10.44); Carbon Dioxide 11 mmol/L (23-31); Chloride 118 mmol/L (98-107); Estimated GFR-MDRD 63; Glucose 345 mg/dL (83-110); Hemoglobin 12.8 g/dL (14.0-18.0); Lymphocytes 10 % (21-51); MDiff Complete? YES; Mean Corpuscular HGB CONC 30.8 g/dL (32.0-36.0); Mean Corpuscular Hemoglobin 26.9 pg (27.0-31.0); Mean Corpuscular Volume 87.3 fL (78.0-98.0); Mean Platelet Volume 9.6 fL (7.4-10.4); Monocytes 2 % (0-10); Neutrophil 85 % (42-75); Ovalocytes SLIGHT = 2-5 cells (100X) (0-1/hpf); Platelet Count 89 thou/uL (130-400); Platelet Morphology Comment Appears Decreased; Polychromasia SLIGHT = 2-3 cells (100X) (0-2/hpf); Potassium 5.6 mmol/L (3.5-5.1); RBC Distribution Width 16.2 % (11.5-14.5); Reactive Lymphocytes 2 % (0-10); Red Blood Cell (RBC) Count 4.74 mill/uL (4.70-6.10); Sodium 137 mmol/L (136-145); White Blood Cell (WBC) Count 18.9 thou/uL (4.8-10.8)
[2018-10-02] MEDS: Nadolol 40 MG TAB PO SCH (10:00)
[2018-10-02] MEDS: Famotidine/PF 20 mg/2ml Vial SLOW IVP SCH (10:00)
[2018-10-02] MEDS: Acetaminophen 500 MG TAB PO PRN (10:23)
[2018-10-02] MEDS: Azithromycin 500 MG in Sodium Chloride 0.9% 250 ML 250 ML IVPB SCH (12:48)
[2018-10-02] MEDS ORDERED: Sodium Bicarb 50 MEQ/50 ML VIAL IVP SCH (14:45)
--- NOTE | 2018-10-02 14:52 | PDOC.PN ---
- Subjective Encounter Start Date: 10/02/18 Encounter Start Time: 14:51 Mr. Rivera was seen today in follow-up of Campylobacter infection with encephalopathy. He is still confused. He appears a bit agitated. - Objective Resuscitation Status - Order Detail: 09/29/18 08:02 Resuscitation Status Routine Resuscitation Status: FULL: Full Resuscitation MAR Reviewed: Yes Vital Signs & Weight: Vital Signs (12 hours) Temp Pulse Resp BP Pulse Ox 10/02/18 12:33 100.3 F H 66 30 H 142/64 H 97 10/02/18 10:23 100.8 F H 10/02/18 08:08 99.2 F 85 32 H 135/73 94 L 10/02/18 08:00 94 L 10/02/18 04:00 98.6 F 74 20 158/77 H 92 L Weight Weight 136 lb 8 oz I&O: 10/01/18 10/02/18 10/03/18 06:59 06:59 06:59 Intake Total 1811 900 Output Total 1325 616 Balance 486 284 Result Diagrams: 10/02/18 07:58 10/02/18 07:58 Additional Labs: Accuchecks 10/02/18 10/02/18 10/01/18 11:49 04:47 19:38 POC Glucose 331 H 332 H 228 H 10/01/18 16:03 POC Glucose 205 H Phys Exam - Physical Examination HEENT: PERRLA Respiratory: no wheezing, no rales, no rhonchi, clear to auscultation bilateral Cardiovascular: RRR, no significant murmur, no rub tachycardic Gastrointestinal: soft, non-tender, positive bowel sounds distended Musculoskeletal: pulses present, edema present trace pedal edema bilaterally Dx/Plan (1) Acute metabolic encephalopathy Code(s): G93.41 - METABOLIC ENCEPHALOPATHY Status: Acute Comment: likely multifactoral including colitis, dehydration, cirrhosis. Ammonia level normal but GI keeping on low dose lactulose to minimize this contributing factor. Will try dose of seroquel to help sleep tonight. (2) Acute renal failure (ARF) Status: Acute Comment: due to volume depletion, creatinine resolving. (3) Intestinal infection due to Campylobacter coli Code(s): A04.5 - CAMPYLOBACTER ENTERITIS Status: Acute (4) Liver cirrhosis secondary to nonalcoholic steatohepatitis (NEAL) Code(s): K75.81 - NONALCOHOLIC STEATOHEPATITIS (NEAL); K74.60 - UNSPECIFIED CIRRHOSIS OF LIVER Status: Chronic (5) Coagulopathy Status: Acute - Plan * Metabolic encephalopathy- not improved * Campylobacter infection- continue Azithromycin as per GI * Sepsis- not sure if this is related to the current infection- concerning is the elevated WBC, and worsening metabolic acidosis, and fever- will move him to the IMCU for closer monitoring. Will also consult ID * DM- blood glucose is a bit elevated- will add a low dose of Lantus insulin. * Cirrhosis- mildly decompensated- likely due to his current infection- GI following
--- NOTE | 2018-10-02 18:14 | PRG ---
DATE OF SERVICE: 10/02/2018 SUBJECTIVE: Mr. Rivera's mental status has not improved. He has become more agitated. By reports, he had 3 bowel movements earlier today. These were all nonbloody. He has spiked a low-grade fever and white count is going up. He has been moved to the [facility]. Tube feeds have been started through nasogastric tube. OBJECTIVE: VITAL SIGNS: Temperature 100.3, pulse 67, blood pressure 116/77, and 97% oxygen saturation on room air. GENERAL: Encephalopathic, agitated, and nonresponsive to voice. HEART: Regular rate and rhythm. LUNGS: Clear to auscultation bilaterally. ABDOMEN: Appears more distended than admission, not tense. Bowel sounds are present. Nontender. EXTREMITIES: No peripheral edema. LABORATORY STUDIES: WBC up to 18.9, hemoglobin 12.8, and platelets 89. INR 2.2. Sodium 137, potassium 5.6, BUN 43, creatinine 1.14, and glucose 395. ASSESSMENT AND PLAN: 1. Campylobacter colitis, currently receiving azithromycin. There is no more blood in the stool, though diarrhea does persist. 2. Encephalopathy. This is thought to be multifactorial. Ammonia level remains normal. I would continue the lactulose per nasogastric tube at least twice per day. 3. Acute kidney injury, creatinine has improved this admission. Note elevated potassium today. 4. Acute blood loss anemia. This has stabilized. 5. Ascites. This is a new development over the past few months. This appears to be increasing over the past couple of days with his worsening leukocytosis and spiking fever, need to consider possibility of peritonitis. I will order ultrasound guided diagnostic paracentesis since the fluid for cell count with differential, culture, total protein, albumin, and cytology. My understanding is that Infectious Disease has also been consulted. We will probably want to expand the antibiotics, but will defer that to them or the primary service. 6. Nonalcoholic steatohepatitis cirrhosis, previously well compensated. This is essentially an initial decompensation of his cirrhosis. Prognosis is guarded. Job ID: [id number]
[2018-10-02] MEDS: Piperacillin/Tazobactam 3.375 GM in Sodium Chloride 0.9% 100 ML IVPB SCH (18:53)
[2018-10-02 19:07] LABS: Actual Bicarbonate (HCO3a) 15.7 mEq/L (22-28); Base Excess (BEa) -5.5 mEq/L (-2.0 to +3.0); Calcium, Ionized 1.35 mmol/L (1.12-1.30); Carboxyhemoglobin (COHb) 1.3 gm% (0.0-3.0); Hemoglobin (Hb) 13.4 g/dL (14.0-18.0); O2 Tension (PaO2) 88.3 mmHg (> 70.0); Potassium - ABG Lab 5.25 mmol/L (3.70-5.30); pH, Arterial 7.49 (7.35-7.45)
[2018-10-02 19:09] LABS: CO2 Tension 21.3 mmHg (35.0-45.0)
[2018-10-02 19:10] LABS: ALV-art Gradient 34.805 (0-20); Puncture Site LRADIAL
[2018-10-02 20:04] LABS: Lactic Acid 2.2 mmol/L (0.5-2.2)
[2018-10-02] MEDS ORDERED: Insulin Glargine 10 UNITS in Pre-Filled Syringe 1 EACH SC SCH (21:00)
[2018-10-03] MEDS: Potassium Chloride 40 MEQ in Sodium Chloride 0.45% 1,000 ML IV SCH ×2 (00:33→05:02)
[2018-10-03] MEDS: Piperacillin/Tazobactam 3.375 GM in Sodium Chloride 0.9% 100 ML IVPB SCH ×3 (00:38→12:00)
[2018-10-03] MEDS: Levothyroxine Sodium 100 MCG TAB PO SCH (05:49)
[2018-10-03] MEDS: HumaLOG 300 UNITS/3 ML VIAL SC PRN ×3 (06:27→16:11)
[2018-10-03 07:21] LABS: Anion Gap 13 mmol/L (10-20); BUN (Urea Nitrogen) 44 mg/dL (8.4-25.7); Calc. Creatinine Clearance 49 mL/min (70-130); Calcium 8.9 mg/dL (7.8-10.44); Carbon Dioxide 15 mmol/L (23-31); Chloride 119 mmol/L (98-107); Estimated GFR-MDRD 62; Glucose 419 mg/dL (83-110); Potassium 5.6 mmol/L (3.5-5.1); Sodium 141 mmol/L (136-145)
[2018-10-03 07:38] LABS: Hemoglobin 13.4 g/dL (14.0-18.0); Mean Corpuscular HGB CONC 31.1 g/dL (32.0-36.0); Mean Corpuscular Hemoglobin 26.6 pg (27.0-31.0); Mean Corpuscular Volume 85.6 fL (78.0-98.0); Mean Platelet Volume 9.8 fL (7.4-10.4); Platelet Count 82 thou/uL (130-400); RBC Distribution Width 16.4 % (11.5-14.5); Red Blood Cell (RBC) Count 5.04 mill/uL (4.70-6.10); White Blood Cell (WBC) Count 21.9 thou/uL (4.8-10.8)
[2018-10-03] MEDS ORDERED: VANCOMYCIN IVPB PRN (07:49)
[2018-10-03 07:52] LABS: Burr Cells SLIGHT = 2-5 cells (100X) (0-1/hpf); Lymphocytes 9 % (21-51); MDiff Complete? YES; Monocytes 7 % (0-10); Neutrophil 83 % (42-75); Platelet Morphology Comment Appears Decreased; Reactive Lymphocytes 1 % (0-10)
[2018-10-03] MEDS ORDERED: Vancomycin HCl 1 GM in Premix Bag 1 BAG IVPB SCH (08:00)
--- NOTE | 2018-10-03 08:47 | PDOC.PN ---
- Subjective Encounter Start Date: 10/03/18 Encounter Start Time: 08:45 Mr. Rivera was seen today in follow-up of metabolic encephalopathy. He is still confused, and can not answer questions. He is a bit less agitated however. - Objective Resuscitation Status - Order Detail: 09/29/18 08:02 Resuscitation Status Routine Resuscitation Status: FULL: Full Resuscitation MAR Reviewed: Yes Vital Signs & Weight: Vital Signs (12 hours) Temp 10/03/18 04:00 98.1 F 10/03/18 00:00 99.1 F Weight Weight 136 lb 8 oz Most Recent Monitor Data Heart Rate from ECG 68 NIBP 120/66 NIBP BP-Mean 84 Respiration from ECG 32 SpO2 95 I&O: 10/02/18 10/03/18 10/04/18 06:59 06:59 06:59 Intake Total 900 1310 Output Total 616 995 Balance 284 315 Result Diagrams: 10/03/18 07:01 10/03/18 07:01 Additional Labs: Accuchecks 10/03/18 10/02/18 10/02/18 06:27 21:11 16:21 POC Glucose 343 H 297 H 395 H 10/02/18 11:49 POC Glucose 331 H Phys Exam - Physical Examination HEENT: PERRLA, sclera anicteric Respiratory: no wheezing, no rales, no rhonchi, clear to auscultation bilateral Cardiovascular: RRR, no significant murmur, no rub Gastrointestinal: soft, non-tender, positive bowel sounds + mild distension, and some flank dullness Musculoskeletal: no edema Dx/Plan (1) Acute metabolic encephalopathy Code(s): G93.41 - METABOLIC ENCEPHALOPATHY Status: Acute Comment: likely multifactoral including colitis, dehydration, cirrhosis. Ammonia level normal but GI keeping on low dose lactulose to minimize this contributing factor. Will try dose of seroquel to help sleep tonight. (2) Acute renal failure (ARF) Status: Acute Comment: due to volume depletion, creatinine resolving. (3) Intestinal infection due to Campylobacter coli Code(s): A04.5 - CAMPYLOBACTER ENTERITIS Status: Acute (4) Liver cirrhosis secondary to nonalcoholic steatohepatitis (NEAL) Code(s): K75.81 - NONALCOHOLIC STEATOHEPATITIS (NEAL); K74.60 - UNSPECIFIED CIRRHOSIS OF LIVER Status: Chronic (5) Coagulopathy Status: Acute - Plan * Metabolic encephalopathy- ? etiology- he has now had a few days of Laclulose via the DHT without much improvement. Discussed with Dr. Mock. Plan is for diagnostic paracentesis today * Sepsis- the WBC continues to rise- will broaden antibiotic coverage, and await recommendations from ID. Could this be encephalopathy from Influenza B * .Campylobacter Colitis- continue AZithromycin * Metabolic Acidosis- nonAG- likely from diarrhea, and possibly from early renal failure- he is compensated- will monitor * Cirrhosis- decompensated- discussed with Dr. Mock * MUNIR- improved * DM- his blood glucose is elevated- will increase the dose of Lantus
[2018-10-03] MEDS ORDERED: Insulin Glargine 10 UNITS in Pre-Filled Syringe 1 EACH SC SCH (09:00)
[2018-10-03] MEDS: Sodium Chloride 0.45% 1,000 ML IV SCH ×2 (09:06→20:49)
[2018-10-03] MEDS: Famotidine/PF 20 mg/2ml Vial SLOW IVP SCH (09:09)
[2018-10-03] MEDS: Nadolol 40 MG TAB PO SCH (09:33)
[2018-10-03] MEDS: Insulin Glargine 25 UNITS in Pre-Filled Syringe 1 EACH SC SCH ×2 (09:34→20:50)
[2018-10-03] MEDS: Azithromycin 500 MG in Sodium Chloride 0.9% 250 ML 250 ML IVPB SCH (11:59)
[2018-10-03 12:05] LABS: INR-International Normal Ratio 1.9; PTT 37.2 SEC (22.9-36.1); Prothrombin Time 21.4 SEC (12.0-14.7)
--- NOTE | 2018-10-03 14:50 | CON ---
DATE OF CONSULTATION: 10/03/2018 REASON FOR CONSULTATION: Altered mental status with diarrhea and recent influenza infection. HISTORY OF PRESENT ILLNESS: A 73-year-old who has a history of steatohepatitis with cirrhosis and portal hypertension, type 2 diabetes, prior appeared or treated melanoma, who about a week before admission developed general malaise and fever, myalgias was diagnosed with influenza infection on September 23, 2018. This was influenza B antigen positive infection. According to the , he was not given any antiviral compound because he had passed the threshold for treatment and he subsequently developed recrudescence of the generalized weakness and he subsequently developed nausea, vomiting, and diarrhea 3-4 days before admission. He became confused and incoherent and had some fever and was eventually brought in for treatment. In the emergency room, a CT abdomen and pelvis showed evidence of thickening of the distal colon suggestive of colitis. He was given ciprofloxacin, Flagyl, and fentanyl for the abdominal pain and admitted to the medical floor from there because of worsening mental status changes, he was admitted to the intensive care unit. Currently, Mr. Rivera is obtunded. His eyes are open, but he does not establish eye contact and does not follow commands. He has had no further vomiting, but he did have hematochezia recently, described by the nurse. No evidence of aspiration. MEDICAL HISTORY: Steatohepatitis with cirrhosis; type 2 diabetes; cardiomyopathy, hypertrophic; esophageal varices; GERD; splenomegaly; hypothyroidism; recent influenza B infection. SURGICAL HISTORY: EGD, shoulder repair, umbilical and inguinal hernia repair, melanoma. ALLERGIES: NONE. FAMILY HISTORY: Hypertrophic cardiomyopathy and type 2 diabetes. SOCIAL HISTORY: Never smoker. No alcoholic beverage use. ALLERGIES: NONE. CURRENT MEDICATIONS: 1. Azithromycin. 2. Famotidine. 3. Glucagon. 4. Insulin. 5. Lactulose. 6. Nadolol. 7. Ondansetron. 8. Piperacillin and tazobactam. 9. Vancomycin. PHYSICAL EXAMINATION: VITAL SIGNS: T-max 100.8, BP 117/91, pulse 67, O2 saturation 95%. SKIN: Mild erythema in the intergluteal region. Simpson catheter in place, with clear urine. No lymphadenopathy. HEENT: Alopecia. Temporal wasting. Ocular movements are conjugate. No nystagmus. Pupils are miotic. Nasogastric tube in place. Oral cavity is dry with still quite a few teeth in place with some decay and gum disease. NECK: Supple. No jugular vein distention or carotid bruits. ABDOMEN: Mildly distended. Bowel sounds are present, but not increased. No genital abnormalities. MUSCULOSKELETAL: Neck is stiff to all directions. No joint inflammatory process noted. Pulses 1+ in dorsalis pedis. Plantar responses are indifferent. No clonus. NEUROLOGIC: He is obtunded, cannot interact with examiner. LABORATORY DATA: White cell count is up from 16,000 to 21,000, hemoglobin 13, platelets 82,000, 83% neutrophils and 9% lymphocytes. INR 1.9. PH 7.49, pCO2 21, PO2 88. Sodium 141, creatinine 1.16, AST 51, ALT 66, alkaline phosphatase 205 and 168, bilirubin is at 1.5, ammonia 28, albumin 2.3, globulin 3.3. Vitamin B12 greater than 2000, folate 9.2. TSH 0.6. Urinalysis was essentially normal, specific gravity 1.046. Microbiology; C. diff antigen toxin negative, lactoferrin was positive and Campylobacter antigen positive as well. The abdomen x-ray with Dobhoff tube in place. Brain CT normal. ASSESSMENT: 1. Steatohepatitis with cirrhosis and portal hypertension. 2. Recent episode of influenza B infection which was not treated. 3. Persistence of symptoms of weakness, then development of altered mental status and diarrhea with now hematochezia and a positive Campylobacter test. 4. Altered mental status. DISCUSSION: Differential diagnosis includes metabolic encephalopathy versus encephalitis. The patient has additionally associated Campylobacter infection. Although Campylobacter antigen is not 100% specific, since his pretest likelihood of having Campylobacter disease is relatively high, then I would think that the post-test probability is high as well of the patient having true Campylobacter infection. Campylobacter fetus can infrequently be associated with meningitis. Campylobacter jejuni rarely For severe life-threatening infection, I would recommend a carbapenem and discontinue Zosyn and azithromycin. We will recheck his influenza PCR test to see if he still has influenza RNA. If so, then we will treat him with antiviral medication as well. May consider a spinal fluid evaluation depending on clinical progress, but I believe his mental status changes are due to metabolic encephalopathy which in his case is multifactorial. Influenza infection can be associated with encephalitis and if he still has a positive influenza test, then may consider a spinal fluid evaluation. Job ID: [id number] [facility]
[2018-10-03] MEDS: MEROPENEM 1 GM/50 ML 1 GM in Premix Bag 1 BAG IVPB SCH ×2 (16:00→21:02)
--- NOTE | 2018-10-03 16:13 | ULT ---
ULTRASOUND GUIDED DIAGNOSTIC PARACENTESIS: INDICATION: Concern for spontaneous punctate peritonitis. TECHNIQUE: Informed consent was obtained. Preprocedure ultrasound in the right lower quadrant was performed mihcelle ntifying a large pocket within the right lower quadrant. A site overlying this region was prepped an d draped in the usual sterile fashion. Buffered 1% Lidocaine was administered to the overlying subcu taneous tissues. Under ultrasound guidance, a 5 [place] Yueh catheter was guided down into the collec tion. There was removal of 20 cc of normal-appearing peritoneal fluid. The needle was removed. The patient tolerated the aspiration without difficulty. IMPRESSION: Successful ultrasound-guided diagnostic paracentesis removal of 20 cc of peritoneal fluid. POS: [facility]
--- NOTE | 2018-10-03 16:20 | PRG ---
DATE OF SERVICE: 10/03/2018 SUBJECTIVE: Mr. Rivera has not had any improvement in mental status. He has remained hemodynamically stable. White count still increasing. He did get his diagnostic paracentesis earlier today. Dr. Murillo saw the patient and switched him to meropenem and has ordered repeat influenza assay. No more hematochezia. PHYSICAL EXAMINATION: VITAL SIGNS: Blood pressure 118/79, pulse 64, 94% oxygen saturation on 1 L nasal cannula, temperature is 100 degrees Fahrenheit. GENERAL: Encephalopathic. No acute distress. HEART: Regular rate and rhythm. LUNGS: Clear to auscultation bilaterally. ABDOMEN: Distended, nontender to palpation. Bowel sounds present. Recent paracentesis in the right lower quadrant. EXTREMITIES: No peripheral edema. LABORATORY STUDIES: WBC up to 21.9, hemoglobin 13.4, and platelets 82. INR 1.9. Sodium 141, potassium 5.6, BUN is 44, creatinine 1.16, glucose 343, calcium 8.9. ASSESSMENT AND PLAN: 1. Encephalopathy, failing to improve in the past 4 days. Awaiting repeat influenza assay. Agree that viral encephalitis should be considered. Appreciate Infectious Disease recommendations. The patient may need a lumbar puncture with spinal fluid analysis. 2. Campylobacter colitis, clinically improved. The patient has been switched to meropenem for severe infection. 3. Acute blood loss anemia. This is stabilized. 4. Acute kidney injury, resolved. 5. Ascites. The patient had his diagnostic paracentesis earlier today. Awaiting fluid studies. 6. Nonalcoholic steatohepatitis cirrhosis, previously well compensated. The patient is now decompensating secondary to his infection and acute illness. Prognosis is guarded. Job ID: [id number]
[2018-10-03 17:44] LABS: BF Color Yellow; BF RBC Count - Manual 1035 /cumm; Body Fluid Source Ascites Body Fluid; Clarity Hazy (Clear); Tube # EDTA; WBC/NonHematic-Auto 1900 /cumm
[2018-10-03 17:53] LABS: BF Segmented Neutrophils 62 %; Cell Count Non Hematic 20 %; Lymphocytes 18 %
--- NOTE | 2018-10-04 02:07 | CON ---
DATE OF CONSULTATION: HISTORY OF PRESENT ILLNESS: Mr. Rivera is a 73-year-old male. According to his , he has been in a slow downhill slide for quite some time. He has been slowly losing weight, becoming weaker, complained to her that he has not been able to hit a golf ball near as far as he used to. He was recently diagnosed with flu. He has had nausea, vomiting, decreased p.o. intake, and diarrhea for 3 to 4 days prior to admission. He was admitted here on the . I was consulted because of his presence to critical care unit. PAST MEDICAL HISTORY: Remarkable for, 1. Cirrhosis. 2. Diabetes. 3. History of hypertrophic cardiomyopathy. 4. History of varices. 5. History of portal hypertension with splenomegaly. 6. History of reflux disease. 7. History of hypothyroidism. 8. History of an EGD. 9. History of shoulder surgery in the past. 10. History of herniorrhaphies, both umbilical and inguinal in the past. 11. History of melanoma. FAMILY HISTORY: Remarkable for diabetes. Negative for lung disease in early age. SOCIAL HISTORY: He is a nonsmoker, nondrinker. ALLERGIES: REPORTS NO DRUG ALLERGIES. MEDICATIONS: Have been reviewed. REVIEW OF SYSTEMS: Not obtainable, somnolent. PHYSICAL EXAMINATION: VITAL SIGNS: Temperature is 99, heart rate 63, blood pressure is 117/77, respiratory rates in the 20s, and oximetry is 93% to 94%. HEENT: He has a Dobbhoff tube in. He has temporal muscle wasting. His pupils are equal. Sclerae are anicteric. NECK: Supple. No lymphadenopathy. LUNGS: Clear anteriorly. HEART: Regular rhythm. S1 and S2 are normal. ABDOMEN: Soft with exam consistent with ascites. EXTREMITIES: Without clubbing, cyanosis, or edema. LABORATORY DATA: White count 21.9, hemoglobin 13.4, and platelets 82,000. Sodium 141, potassium 5.6, chloride 119, bicarb 15, BUN 44, creatinine 1.16, and glucose 419. IMPRESSION: 1. Encephalopathy. His ammonia has been normal. a. My biggest concern as I explained to the was that he appears to have very severe muscle wasting and malnutrition. I am sure that is associated with his liver disease. b. I feel that if he ever requires intubation, he will not be easily or ever extubated. We discussed end of life issues, but the became very upset, stating that she did not want to lose him. c. We will continue supportive care. Other problems include, 1. Hyperchloremic acidosis. 2. Diabetes. 3. Status post paracentesis today showing 1900 white cells, 62% neutrophils with protein of less than 1. Gram stain; there is no Gram stain on the peritoneal fluid at this time. Hopefully, he will stabilize, but his current condition is tenuous in my opinion. He does not need intubation at this point in time in my opinion. We will continue to follow the other physicians caring for him. This is a 50 minute consult with 50% of time spent on unit coordinating care Job ID: [id number] [facility]
[2018-10-04] MEDS: Sodium Chloride 0.45% 1,000 ML IV SCH ×2 (05:54→17:43)
[2018-10-04] MEDS: Levothyroxine Sodium 100 MCG TAB PO SCH (05:54)
[2018-10-04] MEDS: MEROPENEM 1 GM/50 ML 1 GM in Premix Bag 1 BAG IVPB SCH ×3 (05:57→21:22)
[2018-10-04] MEDS: HumaLOG 300 UNITS/3 ML VIAL SC PRN ×4 (06:07→21:21)
[2018-10-04] MEDS: Famotidine/PF 20 mg/2ml Vial SLOW IVP SCH (09:40)
[2018-10-04] MEDS: Nadolol 40 MG TAB PO SCH (09:41)
[2018-10-04] MEDS: Insulin Glargine 25 UNITS in Pre-Filled Syringe 1 EACH SC SCH ×2 (09:43→21:21)
[2018-10-04 09:55] LABS: Anion Gap 10 mmol/L (10-20); BUN (Urea Nitrogen) 44 mg/dL (8.4-25.7); Calc. Creatinine Clearance 48 mL/min (70-130); Carbon Dioxide 17 mmol/L (23-31); Chloride 119 mmol/L (98-107); Estimated GFR-MDRD 60; Glucose 302 mg/dL (83-110); Potassium 4.5 mmol/L (3.5-5.1); Sodium 141 mmol/L (136-145)
[2018-10-04 10:08] LABS: Band 1 % (5-11); Eosinophils 1 % (0-10); Hemoglobin 13.6 g/dL (14.0-18.0); Hypersemented Neutrophil SLIGHT; Lymphocytes 4 % (21-51); MDiff Complete? YES; Mean Corpuscular HGB CONC 31.4 g/dL (32.0-36.0); Mean Corpuscular Volume 86.1 fL (78.0-98.0); Mean Platelet Volume 9.6 fL (7.4-10.4); Monocytes 4 % (0-10); Neutrophil 89 % (42-75); Platelet Count 110 thou/uL (130-400); Platelet Morphology Comment Appears Decreased; RBC Distribution Width 16.7 % (11.5-14.5); RBC Morphology Normal; Reactive Lymphocytes 1 % (0-10); Red Blood Cell (RBC) Count 5.05 mill/uL (4.70-6.10); White Blood Cell (WBC) Count 21.9 thou/uL (4.8-10.8)
--- NOTE | 2018-10-04 10:15 | PRG ---
DATE OF SERVICE: 10/04/2018 SUBJECTIVE: Mr. Gillespie remains quite weak and is still encephalopathic. He will make eye contact. He tries to follow commands, but cannot consistently. OBJECTIVE: VITAL SIGNS: Heart rate 64, blood pressure 141/73, respiratory rate in the 20s to low 30s. LUNGS: Clear. He has no rhonchi. He does not clinically appear to be having trouble with secretions at this time. HEART: Regular rhythm. ABDOMEN: Soft. EXTREMITIES: Without edema. GENERAL: He remains extremely cachectic. LABORATORY DATA: White count 21.9, hemoglobin 13.4, and platelets 82,000. Sodium 141, potassium 5.6, chloride 119, bicarb 15, BUN 44, and creatinine 1.16. IMPRESSION: 1. Cirrhosis. 2. Cachexia and severe malnutrition with weakness. 3. Encephalopathy, likely metabolic associated with nausea, vomiting, diarrhea prior to admission. I doubt he has encephalitis. 4. Borderline hyperkalemia. 5. Acute on chronic kidney disease. 6. Cirrhosis with no evidence of hepatic encephalopathy. 7. Severe hypoalbuminemia. 8. Thrombocytopenia associated with his liver disease. His prognosis is quite poor. I met with the yesterday, tried to discuss code status, but she became very tearful during that discussion and could not make any decisions. Mechanical ventilation if required, would likely be a preterminal or terminal event. His prognosis is extremely poor without his medical problems, simply because of his cachexia. Job ID: [id number]
--- NOTE | 2018-10-04 15:43 | PRG ---
DATE OF SERVICE: 10/04/2018 SUBJECTIVE: The patient has recovered his mental status at least in part. He has opened his eyes, established his eye contact and will follow commands and recognize relatives. Still appears very weak. Had a paracentesis and the results are discussed below. OBJECTIVE: VITAL SIGNS: T-max 100, now 97.8; blood pressure 130/85, pulse 59, and respirations 30 to 36. GENERAL: Frail-appearing, cachectic, almost moderately tachypneic. HEENT: Ocular movements conjugate. Temporal wasting. LUNGS: Symmetric air entry. Faint basilar crackles. ABDOMEN: Distended with some diffuse tenderness, mild to moderate. No rebound tenderness. EXTREMITIES: Moves extremities with some insistence. LABORATORY DATA: White cell count is at 21.9, hemoglobin 13, platelets 110,000 , and 89% neutrophils. Sodium 141 and creatinine 1.18. The peritoneal fluid with 1900 WBCs and 62% neutrophils. The respiratory virus PCR panel was negative. The ascitic fluid culture is pending. ASSESSMENT AND DISCUSSION: Steatohepatitis, cirrhosis, portal hypertension, influenza B infection, which seems to have resolved, weakness, and then altered mental status and diarrhea with hematochezia, and a positive Campylobacter test and abnormal ascitic fluid test results. Campylobacter fetus and jejuni have been described in association with continuous ambulatory peritoneal dialysis associated peritonitis. Cases of Campylobacter sp spontaneous bacterial peritonitis are certainly rare, but have been described in literature. He has processes associated with acute Campylobacter species peritonitis and gastroenteritis. Bacteremia has not yet been documented, but Campylobacter sometimes takes many days to grow from blood cultures. Continue meropenem. The altered mental status is most likely due to metabolic encephalopathy rather than a primary central nervous system process. Job ID: [id number] [facility]
--- NOTE | 2018-10-04 16:10 | PRG ---
DATE OF SERVICE: 10/04/2018 SUBJECTIVE: Mr. Rivera has not had much change in clinical status. He seems a little bit more awake to me today, but still unable to answer questions appropriately. He has remained hemodynamically stable. PHYSICAL EXAMINATION: VITAL SIGNS: Temperature 97.8, blood pressure is 137/77, pulse 58, and 95% oxygen saturation on room air. GENERAL: Cachectic, remains encephalopathic, unable to answer questions, in no distress. HEART: Regular rate and rhythm. LUNGS: Clear to auscultation bilaterally. ABDOMEN: Distended with ascites. Nontender to palpation. EXTREMITIES: No peripheral edema. LABORATORY STUDIES: WBC remains elevated to 21.9, hemoglobin 13.6, platelets 110. Sodium 141, potassium 4.5, BUN 44, creatinine 1.18, glucose 253, calcium 9.0. Paracentesis fluid demonstrated 1900 WBCs, 62% neutrophils. Total protein was only 1.0. Paracentesis culture shows no growth at 24 hours. Respiratory virus culture, PCR was all negative. ASSESSMENT AND PLAN: 1. Encephalopathy, metabolic. He seems more awake to me, but still no significant improvement in mental status. Continuing lactulose due to his liver disease, but I doubt that hepatic encephalopathy is really driving this. 2. Campylobacter colitis, clinically improved. 3. Peritonitis. The patient's peritoneal fluid studies do meet criteria for spontaneous bacterial peritonitis. He remains on meropenem. Infectious Disease also following. 4. Nonalcoholic steatohepatitis cirrhosis. His liver disease is decompensating at this time. Agree that prognosis is guarded to poor. Dr. Hurley is covering for GI service this weekend. Job ID: [id number]
--- NOTE | 2018-10-04 18:19 | PDOC.PN ---
- Subjective Encounter Start Date: 10/04/18 Encounter Start Time: 12:30 Mr. Rivera was seen today in follow-up of metabolic encephalopathy. He appears more alert today. He will make eye contact, but does not speak. He appears less agitated. - Objective Resuscitation Status - Order Detail: 09/29/18 08:02 Resuscitation Status Routine Resuscitation Status: FULL: Full Resuscitation Vital Signs & Weight: Vital Signs (12 hours) Temp Pulse Pulse BP BP Pulse Ox Pulse Ox 10/04/18 17:00 97.7 F 10/04/18 14:29 59 L 59 L 137/77 130/85 96 10/04/18 12:00 97.8 F 10/04/18 08:00 98.6 F 95 Pulse Ox 10/04/18 17:00 10/04/18 14:29 95 10/04/18 12:00 10/04/18 08:00 Weight Admit Weight 136 lb Weight 136 lb 8 oz Most Recent Monitor Data Heart Rate from ECG 59 NIBP 155/85 NIBP BP-Mean 108 Respiration from ECG 28 SpO2 96 I&O: 10/03/18 10/04/18 10/05/18 06:59 06:59 06:59 Intake Total 1310 2969 1756 Output Total 995 1585 570 Balance 315 1384 1186 Result Diagrams: 10/04/18 09:20 10/04/18 09:20 Additional Labs: Accuchecks 10/04/18 10/04/18 10/03/18 09:23 06:06 20:53 POC Glucose 253 H 284 H 262 H Phys Exam - Physical Examination HEENT: PERRLA, sclera anicteric Respiratory: no wheezing, no rales, no rhonchi, clear to auscultation bilateral Cardiovascular: RRR, no significant murmur, no rub Gastrointestinal: soft, non-tender, positive bowel sounds + distended Musculoskeletal: pulses present, edema present Dx/Plan (1) Acute metabolic encephalopathy Code(s): G93.41 - METABOLIC ENCEPHALOPATHY Status: Acute Comment: likely multifactoral including colitis, dehydration, cirrhosis. Ammonia level normal but GI keeping on low dose lactulose to minimize this contributing factor. Will try dose of seroquel to help sleep tonight. (2) Acute renal failure (ARF) Status: Acute Comment: due to volume depletion, creatinine resolving. (3) Intestinal infection due to Campylobacter coli Code(s): A04.5 - CAMPYLOBACTER ENTERITIS Status: Acute (4) Liver cirrhosis secondary to nonalcoholic steatohepatitis (NEAL) Code(s): K75.81 - NONALCOHOLIC STEATOHEPATITIS (NEAL); K74.60 - UNSPECIFIED CIRRHOSIS OF LIVER Status: Chronic (5) Coagulopathy Status: Acute - Plan * Metabolic Encephalopathy- Input for the Specialist involved in his case is appreciated. Viral encephalitis has been essentially ruled out. Will continue treatment for Severe Campylobacter Infection with Meropenem. As per GI, he meets criteria for Peritonitis * Continue Nutritional support with tube feeds * Decompensated Cirrhosis- continue treatment for above * DM- continue to titrate the insulin dose, as well as SSI. * Metabolic acidosis- improved * His guarded prognosis was discussed with family and they voiced understanding. The palliative care team is also involved.
[2018-10-05] MEDS: MEROPENEM 1 GM/50 ML 1 GM in Premix Bag 1 BAG IVPB SCH ×3 (05:11→21:35)
[2018-10-05] MEDS: Levothyroxine Sodium 100 MCG TAB PO SCH (05:11)
[2018-10-05] MEDS: Sodium Chloride 0.45% 1,000 ML IV SCH ×2 (05:11→15:48)
[2018-10-05] MEDS: HumaLOG 300 UNITS/3 ML VIAL SC PRN ×3 (06:26→17:35)
[2018-10-05 06:32] LABS: Anion Gap 11 mmol/L (10-20); BUN (Urea Nitrogen) 45 mg/dL (8.4-25.7); Calc. Creatinine Clearance 52 mL/min (70-130); Calcium 8.8 mg/dL (7.8-10.44); Carbon Dioxide 16 mmol/L (23-31); Chloride 116 mmol/L (98-107); Estimated GFR-MDRD 65; Glucose 375 mg/dL (83-110); Potassium 4.7 mmol/L (3.5-5.1); Sodium 138 mmol/L (136-145)
[2018-10-05 06:37] LABS: Band 3 % (5-11); Hemoglobin 14.5 g/dL (14.0-18.0); Lymphocytes 4 % (21-51); MDiff Complete? YES; Mean Corpuscular HGB CONC 32.1 g/dL (32.0-36.0); Mean Corpuscular Hemoglobin 27.5 pg (27.0-31.0); Mean Corpuscular Volume 85.8 fL (78.0-98.0); Mean Platelet Volume 9.9 fL (7.4-10.4); Monocytes 1 % (0-10); Neutrophil 92 % (42-75); Platelet Count 117 thou/uL (130-400); Platelet Morphology Comment Appears Decreased; RBC Distribution Width 16.5 % (11.5-14.5); Red Blood Cell (RBC) Count 5.28 mill/uL (4.70-6.10); White Blood Cell (WBC) Count 24.8 thou/uL (4.8-10.8)
[2018-10-05] MEDS: Famotidine/PF 20 mg/2ml Vial SLOW IVP SCH (08:51)
[2018-10-05] MEDS: Insulin Glargine 25 UNITS in Pre-Filled Syringe 1 EACH SC SCH (08:51)
[2018-10-05] MEDS: Nadolol 40 MG TAB PO SCH (08:52)
--- NOTE | 2018-10-05 15:10 | PRG ---
DATE OF SERVICE: 10/05/2018 SUBJECTIVE: Mr. Rivera is encephalopathic. He will open his eyes, but will not follow commands. OBJECTIVE: VITAL SIGNS: Temperature 98.3, pulse 87, blood pressure 143/83, and O2 saturation 94% on room air. HEENT: Unremarkable. NECK: No adenopathy or JVD. LUNGS: Poor air movement. CARDIAC: S1 and S2. Regular. ABDOMEN: Distended. EXTREMITIES: Severe muscle wasting. LABORATORY DATA: White count 24.8, hematocrit 45.3, and platelet count 117. Sodium 138, potassium 4.7, chloride 116, CO2 of 16, anion gap 11, BUN 45, creatinine 1.1, and glucose 375. ASSESSMENT: 1. Cirrhosis of the liver. 2. Protein-calorie malnutrition. 3. Acute on chronic renal failure. 4. Hepatic encephalopathy. 5. Thrombocytopenia. PLAN: Continuing supportive care. His prognosis seems quite poor. He is receiving antibiotics. I would try to avoid benzodiazepines and all other sedative medication if at all possible. Continue lactulose. Job ID: [id number]
--- NOTE | 2018-10-05 16:28 | PDOC.PN ---
- Subjective Encounter Start Date: 10/05/18 Encounter Start Time: 09:30 Mr. Rivera was seen today in follow-up of metabolic encephalopathy. He has not changedsignificantly overnight. He will make eye contact but he does not speak. - Objective Resuscitation Status - Order Detail: 09/29/18 08:02 Resuscitation Status Routine Resuscitation Status: FULL: Full Resuscitation MAR Reviewed: Yes Vital Signs & Weight: Vital Signs (12 hours) Temp Pulse Pulse BP BP Pulse Ox Pulse Ox 10/05/18 14:07 107 H 103 H 145/89 H 143/83 H 93 L 10/05/18 10:39 98.3 F 10/05/18 08:00 95 10/05/18 07:07 98.2 F 10/05/18 04:39 97.8 F Pulse Ox 10/05/18 14:07 94 L 10/05/18 10:39 10/05/18 08:00 10/05/18 07:07 10/05/18 04:39 Weight Admit Weight 136 lb Weight 136 lb 8 oz Most Recent Monitor Data Heart Rate from ECG 77 NIBP 143/83 NIBP BP-Mean 103 Respiration from ECG 35 SpO2 94 I&O: 10/04/18 10/05/18 10/06/18 06:59 06:59 06:59 Intake Total 2969 3834 30 Output Total 1585 1020 Balance 1384 2814 30 Result Diagrams: 10/05/18 05:44 10/05/18 05:44 Additional Labs: Accuchecks 10/05/18 10/05/18 10/05/18 16:15 10:16 06:24 POC Glucose 291 H 300 H 301 H 10/04/18 10/04/18 20:59 17:29 POC Glucose 312 H 278 H Phys Exam - Physical Examination HEENT: PERRLA, sclera anicteric Respiratory: no wheezing, no rales, no rhonchi, clear to auscultation bilateral Cardiovascular: RRR, no significant murmur, no rub Gastrointestinal: soft, positive bowel sounds + more distended today Musculoskeletal: pulses present, edema present Dx/Plan (1) Acute metabolic encephalopathy Code(s): G93.41 - METABOLIC ENCEPHALOPATHY Status: Acute Comment: likely multifactoral including colitis, dehydration, cirrhosis. Ammonia level normal but GI keeping on low dose lactulose to minimize this contributing factor. Will try dose of seroquel to help sleep tonight. (2) Acute renal failure (ARF) Status: Acute Comment: due to volume depletion, creatinine resolving. (3) Intestinal infection due to Campylobacter coli Code(s): A04.5 - CAMPYLOBACTER ENTERITIS Status: Acute (4) Liver cirrhosis secondary to nonalcoholic steatohepatitis (NEAL) Code(s): K75.81 - NONALCOHOLIC STEATOHEPATITIS (NEAL); K74.60 - UNSPECIFIED CIRRHOSIS OF LIVER Status: Chronic (5) Coagulopathy Status: Acute - Plan * Metabolic encephalopathy- from severe Capmylobacter infection and sepsis * Continue Meropenem * Decompensated Cirrhosis- continue Lactulose * DM- will titrate the insulin dose * MUNIR- improved. * Prognosis is guarded
--- NOTE | 2018-10-05 16:47 | PRG ---
DATE OF SERVICE: 10/05/2018 SUBJECTIVE: Mr. Rivera is more alert, established eye contact and will nod some questions, but he is alert. His concentration is shifting and sometimes he will not pay attention and not follow commands. No diarrhea. He has an indwelling Simpson catheter. His I's and O's have been positive for the past few days. OBJECTIVE: VITAL SIGNS: His T-max 100 on October 03. He has been afebrile since. BP 140/83, pulse 107, respirations 36, 35 now. HEENT: Temporal wasting, nasoenteric tube. Ocular movements conjugate. Pupils are 2 mm and reactive. LUNGS: Symmetric air entry. Faint basilar crackles. HEART: S1 and S2, regular rate. ABDOMEN: Quite distended with positive fluid wave, indicative of tense ascites. No bladder distention. EXTREMITIES: Able to move extremities, but is diffusely weak. LABORATORY DATA: White cell count is up to 24.8, hemoglobin 14.5, platelets 117, 92% neutrophils. Sodium 138, creatinine 1.1. Paracentesis fluid culture showed no growth at 48 hours. Paracenteses ultrasound, removal of 20 mL of peritoneal fluid. ASSESSMENT AND DISCUSSION: Steatohepatitis with cirrhosis, portal hypertension, recent episode of influenza B infection and now Campylobacter species gastroenteritis with peritonitis, metabolic encephalopathy in the setting of cardiomyopathy and type 2 diabetes mellitus. The patient continues on meropenem. He may benefit from large volume paracentesis since I believe that the abdominal ascites, distention is pressing on the diaphragma hindering his respiratory movements. Job ID: [id number]
--- NOTE | 2018-10-05 18:25 | PRG ---
DATE OF SERVICE: 10/05/2018 SUBJECTIVE: Mr. Rivera is not verbally interactive. He had a possible aspiration event earlier today, and he is gurgling in his saliva and is not swallowing appropriately. He has a Dobhoff tube in place for nutrition. OBJECTIVE: VITAL SIGNS: Temperature is 98.3, blood pressure 152/98, pulse 94, and oxygen saturation 95% on nasal cannula. GENERAL: He is in no acute distress. He is gurgling as he is breathing. I did suction him with a Yankauer; however, this is only temporary. He has shallow weak respiration. LUNGS: Clear to auscultation anteriorly. HEART: Regular rate and rhythm. ABDOMEN: Distended with ascites. There is no obvious tenderness. EXTREMITIES: He has 1+ lower extremity edema. LABORATORY DATA: Creatinine 1.1. INR was 1.9 two days ago. White blood cell count 24.8, hemoglobin 14.5, and platelets 117. IMPRESSION: 1. Campylobacter enteritis. 2. Spontaneous bacterial peritonitis. He has significant abdominal distention that is impacting his breathing as well. 3. Dysphagia and possible aspiration. He has shallow respirations and gurgling his saliva as he breaths. 4. End-stage liver disease with worsening liver function. 5. Acute renal failure, on presentation, improved. RECOMMENDATIONS: 1. Continue antibiotics. 2. I have placed an order for large volume paracentesis for tomorrow. 3. Hold nadolol in light of SBP. 4. We will give albumin scheduled tomorrow along with the paracentesis. Job ID: [id number]
[2018-10-05 19:10] LABS: Actual Bicarbonate (HCO3a) 19.8 mEq/L (22-28); Base Excess (BEa) -7.3 mEq/L (-2.0 to +3.0); CO2 Tension 45.3 mmHg (35.0-45.0); Calcium, Ionized 1.36 mmol/L (1.12-1.30); Carboxyhemoglobin (COHb) 1.6 gm% (0.0-3.0); Hemoglobin (Hb) 16.3 g/dL (14.0-18.0); O2 Tension (PaO2) 71.9 mmHg (> 70.0); Potassium - ABG Lab 4.65 mmol/L (3.70-5.30); pH, Arterial 7.26 (7.35-7.45)
[2018-10-05 19:14] LABS: ALV-art Gradient 227.975 (0-20); Puncture Site RBR
[2018-10-05] MEDS: Insulin Glargine 30 UNITS in Pre-Filled Syringe 1 EACH SC SCH (21:06)
[2018-10-05] MEDS ORDERED: Ventilator Sedation Protocol 1 EACH FS SCH (21:07)
[2018-10-05] MEDS ORDERED: Propofol 1,000 MG/100 ML VIAL IV ONE (21:09)
[2018-10-05] MEDS ORDERED: DISCONTINUE PREVIOUS NARCOTIC PAIN MEDICATIONS AND BENZODIAZEPINES FS SCH (21:20)
[2018-10-05] MEDS ORDERED: fentaNYL Citrate/PF 2,000 MCG in Sodium Chloride 0.9% 60 ML IV SCH (21:20)
[2018-10-05] MEDS ORDERED: Fentanyl BOLUS 250 ML IVPB PRN (21:20)
[2018-10-05] MEDS ORDERED: Propofol BOLUS 1,000 MG/100 ML VIAL IV PRN (21:20)
[2018-10-05] MEDS ORDERED: Lorazepam 2 MG/ML VIAL SLOW IVP PRN (21:20)
[2018-10-05] MEDS ORDERED: Morphine 2 MG/ML SYRINGE SLOW IVP PRN (21:20)
[2018-10-05 21:42] LABS: Base Excess (BEa) -5.5 mEq/L (-2.0 to +3.0); CO2 Tension 30.7 mmHg (35.0-45.0); Calcium, Ionized 1.35 mmol/L (1.12-1.30); Carboxyhemoglobin (COHb) 1.2 gm% (0.0-3.0); Hemoglobin (Hb) 16.4 g/dL (14.0-18.0); O2 Tension (PaO2) 233.8 mmHg (> 70.0); Potassium - ABG Lab 4.28 mmol/L (3.70-5.30); pH, Arterial 7.39 (7.35-7.45)
[2018-10-05 21:43] LABS: ALV-art Gradient 440.825 (0-20); Puncture Site RRA
--- NOTE | 2018-10-05 23:18 | OP ---
DATE OF PROCEDURE: 10/05/2018 PROCEDURE PERFORMED: Fiberoptic bronchoscopy with endotracheal intubation. INDICATION: This is a 73-year-old male with acute on chronic respiratory failure, who has a dismal prognosis. The family has asked that he be intubated while they decide how to proceed. ANESTHESIA: None. DESCRIPTION OF PROCEDURE: A bite block was placed in the patient's mouth. A 7.5 endotracheal tube was placed over a Pentax bronchoscope. The bronchoscope was placed through the bite block orally. The patient's vocal cords were easily identified and the scope was passed through the vocal cords. The endotracheal tube was then easily slipped over the bronchoscope into the trachea. The bronchoscope was then used to survey the position of the endotracheal tube. It was located approximately 4 cm above the jorge. There were some scant mucoid secretions present in the right lower lobe. These were aspirated. The left lung was clear. Procedure was tolerated well. The patient was then placed on mechanical ventilation, SIMV mode. Job ID: [id number]
[2018-10-06] MEDS: Sodium Chloride 0.45% 1,000 ML IV SCH ×3 (00:01→17:37)
[2018-10-06] MEDS: Levothyroxine Sodium 100 MCG TAB PO SCH (05:15)
[2018-10-06] MEDS: MEROPENEM 1 GM/50 ML 1 GM in Premix Bag 1 BAG IVPB SCH ×3 (05:15→22:55)
[2018-10-06 06:03] LABS: Hemoglobin 14.7 g/dL (14.0-18.0); Mean Corpuscular HGB CONC 30.2 g/dL (32.0-36.0); Mean Corpuscular Volume 89.4 fL (78.0-98.0); Mean Platelet Volume 10.1 fL (7.4-10.4); Platelet Count 134 thou/uL (130-400); RBC Distribution Width 16.9 % (11.5-14.5); Red Blood Cell (RBC) Count 5.44 mill/uL (4.70-6.10); White Blood Cell (WBC) Count 46.1 thou/uL (4.8-10.8)
[2018-10-06 06:12] LABS: Anion Gap 9 mmol/L (10-20); BUN (Urea Nitrogen) 47 mg/dL (8.4-25.7); Calc. Creatinine Clearance 66 mL/min (70-130); Calcium 8.8 mg/dL (7.8-10.44); Carbon Dioxide 18 mmol/L (23-31); Chloride 116 mmol/L (98-107); Estimated GFR-MDRD 87; Glucose 170 mg/dL (83-110); Potassium 4.3 mmol/L (3.5-5.1); Sodium 139 mmol/L (136-145)
[2018-10-06 06:39] LABS: Band 10 % (5-11); Hypochromia SLIGHT = 6-15 cells (100X) (0-5/hpf); Lymphocytes 3 % (21-51); MDiff Complete? YES; Monocytes 2 % (0-10); Neutrophil 85 % (42-75); Platelet Morphology Comment Appears Adequate
[2018-10-06] MEDS: HumaLOG 300 UNITS/3 ML VIAL SC PRN ×2 (06:45→21:45)
[2018-10-06 07:25] LABS: Actual Bicarbonate (HCO3a) 16.3 mEq/L (22-28); Calcium, Ionized 1.33 mmol/L (1.12-1.30); Carboxyhemoglobin (COHb) 1.7 gm% (0.0-3.0); O2 Tension (PaO2) 81.4 mmHg (> 70.0); Potassium - ABG Lab 4.13 mmol/L (3.70-5.30); pH, Arterial 7.43 (7.35-7.45)
[2018-10-06 07:26] LABS: Puncture Site RRA
[2018-10-06] MEDS: Famotidine/PF 20 mg/2ml Vial SLOW IVP SCH (08:56)
[2018-10-06] MEDS: Insulin Glargine 30 UNITS in Pre-Filled Syringe 1 EACH SC SCH ×2 (09:02→21:34)
--- NOTE | 2018-10-06 09:31 | RAD ---
PORTABLE CHEST 10/05/18 COMPARISON: 09/28/18 HISTORY: Aspiration. FINDINGS: Dobhoff tube extends into left upper quadrant. Hazy increased density in the medial left base may rep resent medial left basilar infiltrate or volume loss. Patchy opacity is also noted within the medial right lung base. Opacity in the lung bases is new when compared to 09/28/18. No lobar consolidation. No pneumothorax. IMPRESSION: Nonspecific patchy bibasilar opacity seen medially, left greater than right. Followup PA and lateral imaging of the chest following treatment advised. POS: [facility]
--- NOTE | 2018-10-06 09:41 | PRG ---
DATE OF SERVICE: 10/06/2018 TIME SPENT: 35 minutes of Critical Care time. SUBJECTIVE: Mr. Rivera remains intubated on mechanical ventilation. He will wake up, but will not follow any commands specifically. He tracks with his eyes. He does nod and shake his head to some commands. OBJECTIVE: VITAL SIGNS: Temperature 98.0, pulse 79, blood pressure 133/73, O2 saturation running in the mid 90s. HEENT: Bitemporal wasting present. He is intubated orally. NECK: No JVD. CHEST: Coarse breath sounds bilaterally. CARDIOVASCULAR: S1 and S2, regular. ABDOMEN: Somewhat distended. EXTREMITIES: No clubbing or cyanosis. He has severe muscle wasting. LABORATORY DATA: A pH of 7.43, pCO2 of 25, pO2 of 81, SIMV rate 18, tidal volume 500, PEEP 5, pressure support 10, FiO2 of 80%. White blood cell count 46.1, hemoglobin 14, hematocrit 48, platelet count 134. Sodium 139, potassium 4.3, chloride 116, CO2 of 18, BUN 47, creatinine 0.8, glucose 170. ASSESSMENT: 1. Acute hypoxic respiratory failure, requiring mechanical ventilation. X-ray today shows bilateral subtle infiltrates. 2. Bilateral pneumonia. 3. Steatohepatitis with cirrhosis and portal hypertension. 4. Acute respiratory failure, requiring mechanical ventilation. 5. Cardiomyopathy. 6. Type 2 diabetes mellitus. PLAN: 1. The patient's family elected to have him intubated last night because of respiratory distress. I have adjusted his mechanical ventilation today. He is not weanable. 2. Continue IV antibiotics per Dr. Murillo. 3. Consider paracentesis. Job ID: [id number]
[2018-10-06 11:38] LABS: BF Color Yellow; Body Fluid Source Ascites Body Fluid; Clarity Clear (Clear)
[2018-10-06 11:39] LABS: Tube # EDTA; WBC/NonHematic-Auto 286 /cumm
[2018-10-06 11:40] LABS: BF RBC Count - Manual 83 /cumm
[2018-10-06 11:50] LABS: BF Segmented Neutrophils 69 %; Cell Count Non Hematic 16 %; Lymphocytes 15 %
--- NOTE | 2018-10-06 12:58 | RAD ---
PORTABLE CHEST: DATE: 10/06/2018. PROVIDED CLINICAL HISTORY: Respiratory insufficiency. FINDINGS: Comparison 10/05/2018. Interval placement of endotracheal tube, the tip of which projects just above the jorge. Development of bilateral parahilar airspace disease, right greater than left. Enteric c atheter is again noted in similar position. No pleural fluid or pneumothorax apparent. IMPRESSION: 1. Interval intubation. 2. Development of bilateral perihilar airspace disease. This may reflect aspiration or edema. POS: [facility]
--- NOTE | 2018-10-06 13:01 | ULT ---
ULTRASOUND GUIDED PARACENTESIS: HISTORY: Ascites. COMPARISON: 10/03/2018. FINDINGS: Successful ultrasound-guided paracentesis. A total of 3900 mL of yellow-colored ascites was aspirate d. No immediate postprocedure complication. TECHNIQUE: Consent was obtained to perform an ultrasound-guided paracentesis. The right lower quadrant was deem ed appropriate. The skin was prepped and draped in sterile fashion. 1% Lidocaine, buffered with sod ium bicarbonate, was used for local anesthesia. Under ultrasound guidance, a 5 Slovenian 7 cm Yueh cath eter was advanced into the peritoneal space. A total of 190 cc of yellow-colored ascites was aspirat ed. Additional ascites could not be aspirated due to adjacent bowel loops. Therefore, the patient w as once again prepped and draped in sterile fashion. 1% Lidocaine was again used for local anesthesi a. Under ultrasound guidance, a 2nd 5 Slovenian 7 cm Yueh catheter was advanced into the peritoneal spa ce. Via vacuum bottles, a total of an additional 2 liters of yellow-color ascites was aspirated. Th e patient tolerated the procedure well. No immediate or postprocedure complications. IMPRESSION: Successful ultrasound-guided paracentesis. POS: [facility]
[2018-10-06] MEDS: Propofol 1,000 MG/100 ML VIAL IV PRN (13:38)
[2018-10-06] MEDS ORDERED: Albumin 25% 25 GM/100 ML BOT IVPB SCH (15:00)
--- NOTE | 2018-10-06 15:18 | PRG ---
DATE OF SERVICE: 10/06/2018 SUBJECTIVE: Mr. Rivera is sedated on the ventilator. He had possible aspiration yesterday and respiratory failure and he was intubated. OBJECTIVE: VITAL SIGNS: Temperature 98.9, pulse 75, and blood pressure 98/63. GENERAL: He is sedated. Endotracheal tube is in place. He is tolerating feeds. LUNGS: Course breath sounds bilaterally. HEART: Regular rate and rhythm without murmur. ABDOMEN: Soft, less distended after paracentesis today. EXTREMITIES: 1+ pitting lower extremity edema. IMPRESSION: 1. Campylobacter enteritis. 2. Spontaneous bacterial peritonitis. 3. Dysphagia. 4. Respiratory failure, now on mechanical ventilation. 5. End-stage liver disease with overall worsening liver function. RECOMMENDATIONS: 1. He underwent a paracentesis today and hopefully this will improve his respiratory status. 2. The white blood cell count in his fluid has improved with antibiotics. We will continue the current antibiotics with meropenem. 3. Continue tube feeds. 4. Follow trend of the renal function status post paracentesis. He will receive albumin infusion today. Job ID: [id number]
--- NOTE | 2018-10-06 21:11 | PDOC.PN ---
- Subjective Encounter Start Date: 10/06/18 Encounter Start Time: 18:00 Subjective: f/u for acute resp failure on mech ventilation with AC. Continues on -: Meropenem for Campylobacter enteritis and suspected peritonitis however -: all peritoneal fluid cx neg. - Objective Resuscitation Status - Order Detail: 09/29/18 08:02 Resuscitation Status Routine Resuscitation Status: FULL: Full Resuscitation MAR Reviewed: Yes Vital Signs & Weight: Vital Signs (12 hours) Temp Pulse Resp BP 10/06/18 20:00 97.9 F 24 H 10/06/18 18:34 78 10/06/18 18:00 23 H 10/06/18 16:00 98.8 F 23 H 10/06/18 14:32 83 96/56 L 10/06/18 14:00 23 H 10/06/18 12:00 98.9 F 25 H 10/06/18 10:28 77 97/65 10/06/18 10:00 20 Weight Admit Weight 136 lb Weight 136 lb 8 oz Most Recent Monitor Data Heart Rate from ECG 73 NIBP 121/62 NIBP BP-Mean 81 Respiration from ECG 24 SpO2 100 I&O: 10/05/18 10/06/18 10/07/18 06:59 06:59 06:59 Intake Total 3834 1230 1863 Output Total 1020 775 615 Balance 2814 064 8448 Result Diagrams: 10/06/18 05:06 10/06/18 05:06 Additional Labs: Accuchecks 10/06/18 10/06/18 10/06/18 16:40 12:01 09:03 POC Glucose 144 H 110 130 H 10/05/18 22:11 POC Glucose 172 H Microbiology 10/03/18 12:51 Nasopharyngeal swab Respiratory Virus Panel (PCR) - Final 09/29/18 18:51 Stool Stool Lactoferrin - Final 09/29/18 18:51 Stool Shiga Toxin Test - Final 09/29/18 18:51 Stool Stool Culture - Final 09/29/18 18:51 Stool C. difficile GDH Antigen & Toxins - Final 09/28/18 23:06 Urine voided Urine Culture - Final NO GROWTH AT 48 HOURS 10/06/18 10:00 Ascites Fluid Body Fluid Culture - Preliminary 10/03/18 15:20 Paracentesis Fluid Culture - Aspirate Body Fluid Culture - Preliminary Laboratory Tests 10/03/18 10/03/18 10/04/18 07:01 11:51 09:20 WBC 21.9 H 21.9 H Plt Count 82 L 110 L Neutrophils % (Manual) 83 H 89 H PT 21.4 H INR 1.9 10/05/18 10/06/18 05:44 05:06 WBC 24.8 H Plt Count 117 L Neutrophils % (Manual) 92 H 85 H PT INR Radiology Reviewed by me: Yes (PCXR - perihilar bilat infiltrates, lines/tubes in place) EKG Reviewed by me: Yes (Tele - SR) Phys Exam - Physical Examination sedate on mech ventilation ETT in place HEENT: sclera anicteric, oral pharynx no lesions Neck: no nodes, no JVD, supple, full ROM diminished in bases bilat Respiratory: no wheezing S1, S2 Cardiovascular: RRR, no significant murmur, no rub, gallop distended, mild fluid wave Gastrointestinal: positive bowel sounds Musculoskeletal: pulses present, edema present Skin: normal turgor, cap refill <2 seconds Deviation from normal: Simpson with dark stiven urine Dx/Plan (1) Acute respiratory failure with hypoxia Code(s): J96.01 - ACUTE RESPIRATORY FAILURE WITH HYPOXIA Status: Acute Comment: Continue AC and titrate to clinical response, serial ABG's, PCXR in am (2) Acute metabolic encephalopathy Code(s): G93.41 - METABOLIC ENCEPHALOPATHY Status: Acute Comment: Multifactorial given infectious process, ascites, NEAL, resp failure (3) Intestinal infection due to Campylobacter coli Code(s): A04.5 - CAMPYLOBACTER ENTERITIS Status: Acute Comment: Contiue Meropenem 1gm IV q8h (4) Neutrophilic leukocytosis Code(s): D72.9 - DISORDER OF WHITE BLOOD CELLS, UNSPECIFIED Status: Acute Comment: Worsening, continue Meropenem, consider repeat of blood/ucx, repeat CBC in am - Plan continue antibiotics, addiction social worker, respiratory therapy, DVT proph w/SCDs Continue critical support -: Continue Meropenem -: Continue pulmonary support with mech ventilation -: Nutritional support with Glucerna 1.2 at 40ml/h -: AM lab: BMP, CBC, ABG * PCXR in am * Poor prognosis
[2018-10-07] MEDS: Propofol 1,000 MG/100 ML VIAL IV PRN ×2 (02:16→14:06)
[2018-10-07 05:28] LABS: Anion Gap 7 mmol/L (10-20); BUN (Urea Nitrogen) 43 mg/dL (8.4-25.7); Calc. Creatinine Clearance 60 mL/min (70-130); Calcium 9.2 mg/dL (7.8-10.44); Carbon Dioxide 26 mmol/L (23-31); Chloride 112 mmol/L (98-107); Estimated GFR-MDRD 78; Glucose 278 mg/dL (83-110); Potassium 4.5 mmol/L (3.5-5.1); Sodium 140 mmol/L (136-145)
[2018-10-07 05:29] LABS: Band 10 % (5-11); Hemoglobin 12.6 g/dL (14.0-18.0); Lymphocytes 1 % (21-51); MDiff Complete? YES; Mean Corpuscular HGB CONC 31.4 g/dL (32.0-36.0); Mean Corpuscular Hemoglobin 28.2 pg (27.0-31.0); Mean Corpuscular Volume 89.8 fL (78.0-98.0); Mean Platelet Volume 10.8 fL (7.4-10.4); Monocytes 3 % (0-10); Neutrophil 86 % (42-75); Platelet Count 55 thou/uL (130-400); Platelet Morphology Comment Appears Decreased; RBC Distribution Width 17.1 % (11.5-14.5); Red Blood Cell (RBC) Count 4.47 mill/uL (4.70-6.10); White Blood Cell (WBC) Count 23.6 thou/uL (4.8-10.8)
[2018-10-07] MEDS: MEROPENEM 1 GM/50 ML 1 GM in Premix Bag 1 BAG IVPB SCH ×3 (06:56→21:59)
[2018-10-07] MEDS: Levothyroxine Sodium 100 MCG TAB PO SCH (06:56)
[2018-10-07 07:20] LABS: Actual Bicarbonate (HCO3a) 19.6 mEq/L (22-28); CO2 Tension 27.9 mmHg (35.0-45.0); Calcium, Ionized 1.28 mmol/L (1.12-1.30); Carboxyhemoglobin (COHb) 1.4 gm% (0.0-3.0); Hemoglobin (Hb) 11.8 g/dL (14.0-18.0); O2 Tension (PaO2) 124.4 mmHg (> 70.0); Potassium - ABG Lab 3.94 mmol/L (3.70-5.30); pH, Arterial 7.47 (7.35-7.45)
[2018-10-07 07:25] LABS: Puncture Site RRA
[2018-10-07 07:26] LABS: ALV-art Gradient 125.925 (0-20)
[2018-10-07] MEDS: Sodium Chloride 0.45% 1,000 ML IV SCH ×2 (08:17→14:03)
[2018-10-07] MEDS: Famotidine/PF 20 mg/2ml Vial SLOW IVP SCH (08:18)
[2018-10-07] MEDS: Insulin Glargine 30 UNITS in Pre-Filled Syringe 1 EACH SC SCH ×2 (08:19→20:56)
--- NOTE | 2018-10-07 09:21 | RAD ---
RADIOGRAPH CHEST 1 VIEW: Date: 10/07/2018 Time: 3:24 a.m. HISTORY: A 73-year-old male with pneumonia. COMPARISON: 10/06/2018 at 6:10 a.m. FINDINGS: Endotracheal tube and Dobhoff feeding tube remain. No cardiomegaly. There has been significant inte rval improvement in the pulmonary opacity involving the right mid and lower lung zones. The right nabeel ng is now almost completely clear. There is mild haziness remaining in the medial portion of the lef t lung. No pneumothorax. IMPRESSION: 1. Total or almost total resolution of the right-sided infiltrate or edema. 2. Mild interstitial densities remain in the central portion of the left lung. RENEE [] POS: JEFE
[2018-10-07] MEDS: HumaLOG 300 UNITS/3 ML VIAL SC PRN ×3 (11:24→21:26)
--- NOTE | 2018-10-07 16:33 | PRG ---
DATE OF SERVICE: 10/07/2018 SUBJECTIVE: Deep Rivera remains intubated. He was intubated over the weekend. Those notes have been reviewed. OBJECTIVE: VITAL SIGNS: Heart rate is in 80s, blood pressure 97/61, respiratory rate is in the teens to low 20s. GENERAL: He still appears cachectic. LUNGS: Clear anteriorly. HEART: Regular rhythm. ABDOMEN: Soft and protuberant. EXTREMITIES: Without edema. LABORATORY DATA: White count is 23.6, hemoglobin 12.6, platelets 55,000. Sodium 140, potassium 4.5, chloride 112, bicarb 26, BUN 43, creatinine 0.9. PH 747, CO2 27, PO2 124. IMPRESSION: 1. Advanced cirrhosis? Spontaneous bacterial peritonitis. Cultures are negative so far. 2. Advanced cirrhosis. 3. Metabolic encephalopathy prior to intubation with an inability to clear secretions. His white count was peritoneal fluid down from 1900 to 286 yesterday, arguing that antimicrobial therapy is appropriate. The biggest issue facing the patient is his lack of muscle strength. His is fairly fixated on the fact that he played golf 2 weeks ago, but I think this illness wiped out what little reserve he had left. I met with her again today and met with the daughter when she arrived late this afternoon. I answered all their questions. CRITICAL CARE TIME: 30 minutes. Job ID: [id number]
--- NOTE | 2018-10-07 17:54 | PRG ---
DATE OF SERVICE: 10/07/2018 SUBJECTIVE: Mr. Rivera did not do well over the weekend. Mental status really did not improve. He developed progressive hypoxia with respiratory failure and increased work of breathing and had to be intubated. He did receive a therapeutic paracentesis yesterday of 2 L of fluid. Paracentesis fluid studies showed the fluid neutrophil count has drastically decreased. He remains on the ventilator and due to severe muscle weakness, he is not thought to be weanable. The palliative care team has become involved and they changed his code status to DNR. I spoke with the patient's and daughter at length this afternoon and they do verify that the patient had stated he would not want to be on a machine life-support for any extended period of time. OBJECTIVE: VITAL SIGNS: Temperature 98.9, blood pressure 113/68, pulse 85, 100% oxygen saturation on ventilator. GENERAL: Critically ill, cachectic, on ventilator, in no distress. Unresponsive to voice today. HEART: Regular rate and rhythm. LUNGS: Bilateral vent sounds. ABDOMEN: Mild distention, not tense, nontender to palpation. EXTREMITIES: No peripheral edema. LABORATORY STUDIES: WBC 23.6, hemoglobin 12.6, platelets 55. INR 1.9. Sodium 140, potassium 4.5, BUN 43, creatinine 0.94, glucose 210. Repeat paracentesis fluid study showed 286 WBCs, 69% neutrophils. ASSESSMENT AND PLAN: 1. Campylobacter colitis with probably secondary peritonitis. The patient's WBC count in the peritoneal fluid has dramatically decreased. The patient continues on meropenem. 2. Metabolic encephalopathy. Unfortunately, this has not really improved. Continue lactulose. 3. Cirrhosis, secondary to nonalcoholic steatohepatitis. This was previously well compensated, but unfortunately with this acute illness, his liver is decompensating. Now with development of ascites. 4. Deconditioning. 5. Respiratory failure, now requiring mechanical ventilation. The patient is not thought to be weanable from the ventilator anytime soon, I had a long discussion with the patient's and daughter today. Unfortunately, the patient's prognosis appears quite grim at this point. I think the likelihood that he will survive this acute illness has become quite small. They are continuing with discussions with the palliative care team regarding goals of care. It would not be unreasonable to consider hospice/palliative care at this point in time. In the meantime, continuing with full supportive measures. Job ID: [id number]
--- NOTE | 2018-10-07 18:29 | PDOC.PN ---
- Subjective Encounter Start Date: 10/07/18 Encounter Start Time: 18:25 Subjective: f/u for sepsis due to suspected Campylobacter colitis/peritonitis with -: negative peritoneal fluid cx's. Remains on Meropenem, mech ventilation -: TF's with Glucerna. - Objective Resuscitation Status - Order Detail: 09/29/18 08:02 Resuscitation Status Routine Resuscitation Status: FULL: Full Resuscitation MAR Reviewed: Yes Vital Signs & Weight: Vital Signs (12 hours) Temp Pulse Resp BP Pulse Ox 10/07/18 18:00 24 H 10/07/18 16:00 98.9 F 23 H 10/07/18 14:15 81 97/61 10/07/18 14:00 20 10/07/18 12:00 23 H 10/07/18 11:22 77 118/57 L 10/07/18 11:00 98.1 F 10/07/18 10:00 17 10/07/18 08:00 97.8 F 24 H 100 10/07/18 06:56 77 95/61 Weight Admit Weight 136 lb Weight 136 lb 8 oz Most Recent Monitor Data Heart Rate from ECG 82 NIBP 117/70 NIBP BP-Mean 85 Respiration from ECG 23 SpO2 100 I&O: 10/06/18 10/07/18 10/08/18 06:59 06:59 06:59 Intake Total 1230 1963 1431 Output Total 775 1115 610 Balance 455 848 821 Result Diagrams: 10/07/18 04:45 10/07/18 04:45 Additional Labs: Accuchecks 10/07/18 10/07/18 10/07/18 15:41 11:24 06:52 POC Glucose 210 H 251 H 225 H 10/06/18 21:33 POC Glucose 228 H Microbiology 10/03/18 12:51 Nasopharyngeal swab Respiratory Virus Panel (PCR) - Final 09/29/18 18:51 Stool Stool Lactoferrin - Final 09/29/18 18:51 Stool Shiga Toxin Test - Final 09/29/18 18:51 Stool Stool Culture - Final 09/29/18 18:51 Stool C. difficile GDH Antigen & Toxins - Final 09/28/18 23:06 Urine voided Urine Culture - Final NO GROWTH AT 48 HOURS 10/06/18 10:00 Ascites Fluid Body Fluid Culture - Preliminary 10/06/18 10:00 Ascites Fluid Body Fluid Culture - Preliminary 10/03/18 15:20 Paracentesis Fluid Culture - Aspirate Body Fluid Culture - Preliminary 10/03/18 15:20 Paracentesis Fluid Culture - Aspirate Body Fluid Culture - Preliminary Laboratory Tests 10/03/18 10/03/18 10/04/18 07:01 11:51 09:20 WBC 21.9 H 21.9 H Plt Count 82 L 110 L Neutrophils % (Manual) 83 H 89 H PT 21.4 H INR 1.9 Magnesium 10/05/18 10/06/18 10/07/18 05:44 05:06 04:45 WBC 24.8 H 46.1 H* Plt Count 117 L 134 Neutrophils % (Manual) 92 H 85 H 86 H PT INR Magnesium 10/07/18 04:45 WBC Plt Count Neutrophils % (Manual) PT INR Magnesium 1.9 Radiology Reviewed by me: Yes (PCXR - improved infiltrate of R lung field, lines /tubes in position) EKG Reviewed by me: Yes (Tele - SR) Phys Exam - Physical Examination sedate on mech ventilation ETT in place HEENT: PERRLA, sclera anicteric, oral pharynx no lesions Neck: no nodes, no JVD, supple, full ROM diminished in bases Respiratory: no wheezing, no rales, no rhonchi S1, S2 Cardiovascular: RRR, no significant murmur, no rub, gallop + mild distention and fluid wave Gastrointestinal: soft, positive bowel sounds Musculoskeletal: no edema, pulses present sedate on mech ventilation Skin: normal turgor, cap refill <2 seconds Deviation from normal: Simpson with stiven urine Dx/Plan (1) Acute respiratory failure with hypoxia Code(s): J96.01 - ACUTE RESPIRATORY FAILURE WITH HYPOXIA Status: Acute Comment: Continue AC and titrate to clinical response, FIO2 30%, serial ABG's, PCXR in am (2) Acute metabolic encephalopathy Code(s): G93.41 - METABOLIC ENCEPHALOPATHY Status: Acute Comment: Multifactorial given infectious process, ascites, NEAL, resp failure, monitor for clinical improvement after weaning off sedation (3) Intestinal infection due to Campylobacter coli Code(s): A04.5 - CAMPYLOBACTER ENTERITIS Status: Acute Comment: Contiue Meropenem 1gm IV q8h (4) Neutrophilic leukocytosis Code(s): D72.9 - DISORDER OF WHITE BLOOD CELLS, UNSPECIFIED Status: Acute Comment: Improved, continue Meropenem, consider repeat of blood/ucx if WBC spikes, repeat CBC in am - Plan continue antibiotics, convention services manager, respiratory therapy, DVT proph w/SCDs Continue critical support -: Mech ventilation with AC, FIO2 30% -: Nutritional support with Glucerna 1.2 @ 40ml/h -: Continue Meropenem -: Family discussing care home options/care * AM lab: CMP, CBC, ABG * PCXR in am
[2018-10-08] MEDS: Sodium Chloride 0.45% 1,000 ML IV SCH ×3 (01:34→21:49)
[2018-10-08] MEDS: Propofol 1,000 MG/100 ML VIAL IV PRN (03:04)
[2018-10-08] MEDS: MEROPENEM 1 GM/50 ML 1 GM in Premix Bag 1 BAG IVPB SCH ×3 (05:43→21:35)
[2018-10-08] MEDS: Levothyroxine Sodium 100 MCG TAB PO SCH (05:43)
[2018-10-08 06:23] LABS: Band 7 % (5-11); Hemoglobin 12.4 g/dL (14.0-18.0); Hypochromia SLIGHT = 6-15 cells (100X) (0-5/hpf); Lymphocytes 3 % (21-51); MDiff Complete? YES; Mean Corpuscular HGB CONC 31.8 g/dL (32.0-36.0); Mean Corpuscular Hemoglobin 28.6 pg (27.0-31.0); Mean Corpuscular Volume 89.9 fL (78.0-98.0); Mean Platelet Volume 11.3 fL (7.4-10.4); Monocytes 1 % (0-10); Neutrophil 89 % (42-75); Platelet Count 48 thou/uL (130-400); Platelet Morphology Comment Appears Decreased; RBC Distribution Width 17.7 % (11.5-14.5); Red Blood Cell (RBC) Count 4.34 mill/uL (4.70-6.10); White Blood Cell (WBC) Count 19.9 thou/uL (4.8-10.8)
[2018-10-08] MEDS: HumaLOG 300 UNITS/3 ML VIAL SC PRN ×2 (06:26→15:14)
[2018-10-08 06:44] LABS: ALT (SGPT) 37 U/L (8-55); AST (SGOT) 32 U/L (5-34); Albumin 2.5 g/dL (3.4-4.8); Alkaline Phosphatase 207 U/L (40-150); Anion Gap 10 mmol/L (10-20); BUN (Urea Nitrogen) 39 mg/dL (8.4-25.7); Bilirubin, Total 2.1 mg/dL (0.2-1.2); Calc. Creatinine Clearance 67 mL/min (70-130); Calcium 9.1 mg/dL (7.8-10.44); Carbon Dioxide 23 mmol/L (23-31); Chloride 111 mmol/L (98-107); Estimated GFR-MDRD 88; Globulin 3.3 g/dL (2.4-3.5); Glucose 265 mg/dL (83-110); Protein, Total 5.8 g/dL (5.8-8.1); Sodium 140 mmol/L (136-145)
[2018-10-08 07:45] LABS: Actual Bicarbonate (HCO3a) 20.8 mEq/L (22-28); Base Excess (BEa) -2.1 mEq/L (-2.0 to +3.0); Calcium, Ionized 1.32 mmol/L (1.12-1.30); Carboxyhemoglobin (COHb) 1.3 gm% (0.0-3.0); Hemoglobin (Hb) 12.5 g/dL (14.0-18.0); O2 Tension (PaO2) 79.3 mmHg (> 70.0); Potassium - ABG Lab 3.74 mmol/L (3.70-5.30); pH, Arterial 7.46 (7.35-7.45)
[2018-10-08 07:46] LABS: Puncture Site RRA
--- NOTE | 2018-10-08 09:04 | RAD ---
SINGLE VIEW CHEST: HISTORY: Pneumonia. COMPARISON: 10/07/2018 FINDINGS: A single view of the chest shows a normal sized cardiomediastinal silhouette. The endotracheal tube is unchanged in position. Increased interstitial markings are present. There is no evidence of cons olidation, mass, or pleural effusion. IMPRESSION: Stable examination. POS: LISA
[2018-10-08] MEDS: Famotidine/PF 20 mg/2ml Vial SLOW IVP SCH (09:22)
[2018-10-08] MEDS: Insulin Glargine 30 UNITS in Pre-Filled Syringe 1 EACH SC SCH ×2 (10:59→21:35)
--- NOTE | 2018-10-08 19:39 | PRG ---
DATE OF SERVICE: 10/08/2018 SUBJECTIVE: No significant change in clinical status for Mr. Rivera. He remains on the ventilator, intubated, and sedated. His family did decide to go forward with DNR status yesterday. He continues to make urine and labs are essentially stable. He is receiving tube feeds per his nasogastric tube. OBJECTIVE: VITAL SIGNS: Temperature 97.5, pulse 82, blood pressure 106/65, and 96% oxygen saturation on ventilator. GENERAL: Critically ill. HEART: Regular rate and rhythm. LUNGS: Bilateral vent sounds. ABDOMEN: Moderate distention. Dull to percussion in the flanks. Bowel sounds active. No tenderness to palpation. EXTREMITIES: No peripheral edema. LABORATORY STUDIES: WBC is down slightly to 19.9, hemoglobin stable at 12.4, platelets 48. Sodium 140, potassium 4.0, BUN 39, creatinine down to 0.85, glucose 196, calcium 9.1, total bilirubin is 2.1 essentially stable. Alkaline phosphatase 207, AST 32, ALT 37. ASSESSMENT AND PLAN: 1. Bacterial peritonitis. Note that repeat peritoneal studies from the day before yesterday showed significant decline in neutrophil count. The patient remains on meropenem. 2. Campylobacter colitis, clinically resolved at this point. 3. Severe deconditioning. 4. Respiratory failure. The patient remains intubated on ventilator. 5. Cirrhosis secondary to nonalcoholic steatohepatitis. 6. Encephalopathy. Overall, the patient's condition remains grave. I would agree that the patient is likely too weak to be successfully weaned off the ventilator. My understanding is that discussions are ongoing with the palliative care team regarding overall goals of care. Job ID: [id number]
--- NOTE | 2018-10-08 19:54 | PRG ---
DATE OF SERVICE: 10/08/2018 SUBJECTIVE: Mr. Rivera is unchanged. OBJECTIVE: VITAL SIGNS: Heart rate is in 80s. Blood pressure 106/65, respiratory rate 24. Intake and output is positive at 1702. LUNGS: Clear. HEART: Regular rhythm. ABDOMEN: Soft. EXTREMITIES: Without edema. LABORATORY DATA: White count 19.9, hemoglobin 12.4, platelets 48,000. Sodium 140, potassium 4, chloride 111, bicarbonate 23, BUN 39, and creatinine 0.85. IMPRESSION: Respiratory failure associated with severe weakness associated with advanced cirrhosis and spontaneous bacterial peritonitis. I met with the and answered all of her questions. She wants to wait till the end of the week to make decisions regarding withdrawal of care. He is currently not weanable. Job ID: [id number]
--- NOTE | 2018-10-08 20:49 | PDOC.PN ---
- Subjective Encounter Start Date: 10/08/18 Encounter Start Time: 17:00 Subjective: f/u for acute resp failure, sepsis with Campylobacter colitis and -: end-stage liver disease. Continues on [facility] ventilation, sedation. - Objective Resuscitation Status - Order Detail: 10/08/18 09:54 Resuscitation Status Routine Resuscitation Status: DNAR: NO Resuscitation Discussed with: at bedside MAR Reviewed: Yes Vital Signs & Weight: Vital Signs (12 hours) Temp Pulse 10/08/18 20:00 97.5 F L 10/08/18 15:30 88 10/08/18 13:24 73 10/08/18 11:00 97.5 F L 10/08/18 10:17 69 10/08/18 10:00 97.7 F Weight Admit Weight 136 lb Weight 136 lb 8 oz Most Recent Monitor Data Heart Rate from ECG 90 NIBP 133/76 NIBP BP-Mean 95 Respiration from ECG 25 SpO2 99 I&O: 10/07/18 10/08/18 10/09/18 06:59 06:59 06:59 Intake Total 1963 3252 1600 Output Total 1115 1550 460 Balance 848 1702 1140 Result Diagrams: 10/08/18 04:25 10/08/18 04:25 Additional Labs: Accuchecks 10/08/18 10/08/18 10/08/18 15:08 10:12 06:19 POC Glucose 196 H 202 H 272 H 10/07/18 21:12 POC Glucose 218 H Microbiology 10/03/18 12:51 Nasopharyngeal swab Respiratory Virus Panel (PCR) - Final 09/29/18 18:51 Stool Stool Lactoferrin - Final 09/29/18 18:51 Stool Shiga Toxin Test - Final 09/29/18 18:51 Stool Stool Culture - Final 09/29/18 18:51 Stool C. difficile GDH Antigen & Toxins - Final 09/28/18 23:06 Urine voided Urine Culture - Final NO GROWTH AT 48 HOURS 10/06/18 10:00 Ascites Fluid Body Fluid Culture - Preliminary 10/06/18 10:00 Ascites Fluid Body Fluid Culture - Preliminary 10/03/18 15:20 Paracentesis Fluid Culture - Aspirate Body Fluid Culture - Preliminary 10/03/18 15:20 Paracentesis Fluid Culture - Aspirate Body Fluid Culture - Preliminary Laboratory Tests 10/03/18 10/03/18 10/04/18 07:01 11:51 09:20 WBC 21.9 H 21.9 H Plt Count 82 L 110 L Neutrophils % (Manual) 83 H 89 H PT 21.4 H INR 1.9 Magnesium 10/05/18 10/06/18 10/07/18 05:44 05:06 04:45 WBC 24.8 H 46.1 H* Plt Count 117 L 134 Neutrophils % (Manual) 92 H 85 H 86 H PT INR Magnesium 10/07/18 04:45 WBC Plt Count Neutrophils % (Manual) PT INR Magnesium 1.9 Radiology Reviewed by me: Yes (PCXR - increased interstitial markings, lines/ tubes in place) EKG Reviewed by me: Yes (Tele - SR) Phys Exam - Physical Examination sedate on mech vent, thin, pale ETT in place HEENT: PERRLA, sclera anicteric, oral pharynx no lesions Neck: no nodes, no JVD, supple, full ROM Respiratory: no wheezing, no rales, no rhonchi, clear to auscultation bilateral S1, S2 Cardiovascular: RRR, no significant murmur, no rub, gallop + distention Gastrointestinal: non-tender, positive bowel sounds Musculoskeletal: no edema, pulses present Skin: normal turgor, cap refill <2 seconds Deviation from normal: Simpson with dark stiven urine Dx/Plan (1) Acute respiratory failure with hypoxia Code(s): J96.01 - ACUTE RESPIRATORY FAILURE WITH HYPOXIA Status: Acute Comment: Continue AC and titrate to clinical response, FIO2 30%, serial ABG's, PCXR in am (2) Acute metabolic encephalopathy Code(s): G93.41 - METABOLIC ENCEPHALOPATHY Status: Acute Comment: Multifactorial given infectious process, ascites, NEAL, resp failure, monitor for clinical improvement after weaning off sedation (3) Intestinal infection due to Campylobacter coli Code(s): A04.5 - CAMPYLOBACTER ENTERITIS Status: Acute Comment: Contiue Meropenem 1gm IV q8h (4) Neutrophilic leukocytosis Code(s): D72.9 - DISORDER OF WHITE BLOOD CELLS, UNSPECIFIED Status: Acute Comment: Improved, continue Meropenem, consider repeat of blood/ucx if WBC spikes, repeat CBC in am - Plan plan discussed w/ family, continue antibiotics, health care social worker, respiratory therapy, DVT proph w/SCDs Continue critical support -: Continue Meropenem -: Nutritional support with Glucerna 1.2 @ 30ml/h -: Continue Lactulose 20gm BID -: AM lab: CMP, CBC, ABG * Family considering withdrawal of care in next 72h if no clinical improvement * Poor prognosis
--- NOTE | 2018-10-08 20:59 | PDOC.EVN ---
Event Note - Event Note Event Note: ACP Note Spoke with two sisters, and daughter regarding current clinical situation and inability to wean off mech ventilation and clinical decline despite aggressive support, abx and nutritional supplementation. Family wishing to gauge clinical response in the next 72h for any signs of improvement and then consider withdrawal of care if none noted. They verbalize understanding of tenuous clinical situation and likelihood that pt could succumb without life support and mech ventilation. Will continue current aggressive critical support for now and monitor response. Total time: 35min
[2018-10-08] MEDS: Diltiazem HCl 125 MG, Admixture Fee 1 EACH in Sodium Chloride 0.9% 100 ML IVPB SCH (21:49)
[2018-10-09] MEDS: Propofol 1,000 MG/100 ML VIAL IV PRN (02:59)
[2018-10-09] MEDS: MEROPENEM 1 GM/50 ML 1 GM in Premix Bag 1 BAG IVPB SCH ×3 (05:24→21:55)
[2018-10-09] MEDS: Levothyroxine Sodium 100 MCG TAB PO SCH (05:25)
[2018-10-09 05:26] LABS: Band 4 % (5-11); Eosinophils 1 % (0-10); Hemoglobin 13.4 g/dL (14.0-18.0); Lymphocytes 4 % (21-51); MDiff Complete? YES; Mean Corpuscular HGB CONC 31.2 g/dL (32.0-36.0); Mean Corpuscular Hemoglobin 28.7 pg (27.0-31.0); Mean Corpuscular Volume 92.1 fL (78.0-98.0); Mean Platelet Volume 11.9 fL (7.4-10.4); Monocytes 8 % (0-10); Myelocyte 2 % (0-0); Neutrophil 81 % (42-75); Platelet Count 71 thou/uL (130-400); Platelet Morphology Comment Appears Decreased; RBC Distribution Width 18.7 % (11.5-14.5); Red Blood Cell (RBC) Count 4.65 mill/uL (4.70-6.10); White Blood Cell (WBC) Count 17.8 thou/uL (4.8-10.8)
[2018-10-09 05:37] LABS: ALT (SGPT) 34 U/L (8-55); AST (SGOT) 28 U/L (5-34); Albumin 2.4 g/dL (3.4-4.8); Alkaline Phosphatase 228 U/L (40-150); Anion Gap 11 mmol/L (10-20); BUN (Urea Nitrogen) 38 mg/dL (8.4-25.7); Bilirubin, Total 2.2 mg/dL (0.2-1.2); Calc. Creatinine Clearance 65 mL/min (70-130); Calcium 8.8 mg/dL (7.8-10.44); Carbon Dioxide 22 mmol/L (23-31); Chloride 109 mmol/L (98-107); Estimated GFR-MDRD 86; Globulin 3.5 g/dL (2.4-3.5); Glucose 304 mg/dL (83-110); Potassium 4.5 mmol/L (3.5-5.1); Protein, Total 5.9 g/dL (5.8-8.1); Sodium 137 mmol/L (136-145)
[2018-10-09] MEDS: HumaLOG 300 UNITS/3 ML VIAL SC PRN ×3 (06:09→16:29)
[2018-10-09 07:46] LABS: Actual Bicarbonate (HCO3a) 18.4 mEq/L (22-28); Base Excess (BEa) -4.4 mEq/L (-2.0 to +3.0); CO2 Tension 27.8 mmHg (35.0-45.0); Calcium, Ionized 1.29 mmol/L (1.12-1.30); Carboxyhemoglobin (COHb) 1.4 gm% (0.0-3.0); Hemoglobin (Hb) 13.5 g/dL (14.0-18.0); O2 Tension (PaO2) 71.2 mmHg (> 70.0); Potassium - ABG Lab 4.18 mmol/L (3.70-5.30); pH, Arterial 7.44 (7.35-7.45)
[2018-10-09 07:48] LABS: Puncture Site RRA
--- NOTE | 2018-10-09 08:49 | RAD ---
CHEST 1 VIEW: INDICATION: Pneumonia. COMPARISON: Prior exam dated 10/08/2018. FINDINGS: The patient remains intubated with associated feeding tube. There are perihilar airspace opacities t hat persist. No definite pneumothorax or pleural effusion is evident. IMPRESSION: Stable exam. POS: BH
[2018-10-09] MEDS: Famotidine/PF 20 mg/2ml Vial SLOW IVP SCH (09:19)
[2018-10-09] MEDS: Sodium Chloride 0.45% 1,000 ML IV SCH ×2 (09:20→21:57)
[2018-10-09] MEDS: Insulin Glargine 30 UNITS in Pre-Filled Syringe 1 EACH SC SCH ×2 (09:20→21:54)
[2018-10-09 14:20] VITALS: BMI 23.8
--- NOTE | 2018-10-09 15:23 | PDOC.PN ---
- Subjective Encounter Start Date: 10/09/18 Encounter Start Time: 14:15 Subjective: f/u for sepsis, Campylobacter enteritis, end-stage cirrhosis due to -: NEAL. [facility], sedation holiday briefly this am. -: Not following commands per nursing. + multiple loose stools - Objective Resuscitation Status - Order Detail: 10/08/18 09:54 Resuscitation Status Routine Resuscitation Status: DNAR: NO Resuscitation Discussed with: at bedside MAR Reviewed: Yes Vital Signs & Weight: Vital Signs (12 hours) Temp Pulse Resp Pulse Ox 10/09/18 14:00 16 10/09/18 13:45 80 10/09/18 12:00 98.0 F 25 H 10/09/18 10:52 77 10/09/18 10:00 21 H 10/09/18 08:00 98.6 F 19 99 10/09/18 07:37 69 10/09/18 06:00 26 H 10/09/18 04:00 98.5 F 27 H Weight Admit Weight 136 lb Weight 156 lb 4.924 oz Most Recent Monitor Data Heart Rate from ECG 72 NIBP 96/64 NIBP BP-Mean 74 Respiration from ECG 24 SpO2 99 I&O: 10/08/18 10/09/18 10/10/18 06:59 06:59 06:59 Intake Total 3252 3545.9 Output Total 1550 714 235 Balance 1702 2831.9 -235 Result Diagrams: 10/09/18 04:45 10/09/18 04:45 Additional Labs: Accuchecks 10/09/18 10/08/18 11:18 21:35 POC Glucose 271 H 227 H Microbiology 10/03/18 12:51 Nasopharyngeal swab Respiratory Virus Panel (PCR) - Final 09/29/18 18:51 Stool Stool Lactoferrin - Final 09/29/18 18:51 Stool Shiga Toxin Test - Final 09/29/18 18:51 Stool Stool Culture - Final 09/29/18 18:51 Stool C. difficile GDH Antigen & Toxins - Final 09/28/18 23:06 Urine voided Urine Culture - Final NO GROWTH AT 48 HOURS 10/06/18 10:00 Ascites Fluid Body Fluid Culture - Preliminary 10/06/18 10:00 Ascites Fluid Body Fluid Culture - Preliminary 10/03/18 15:20 Paracentesis Fluid Culture - Aspirate Body Fluid Culture - Preliminary 10/03/18 15:20 Paracentesis Fluid Culture - Aspirate Body Fluid Culture - Preliminary Laboratory Tests 10/03/18 10/03/18 10/04/18 07:01 11:51 09:20 WBC 21.9 H 21.9 H Plt Count 82 L 110 L Neutrophils % (Manual) 83 H 89 H PT 21.4 H INR 1.9 Magnesium 10/05/18 10/06/18 10/07/18 05:44 05:06 04:45 WBC 24.8 H 46.1 H* Plt Count 117 L 134 Neutrophils % (Manual) 92 H 85 H 86 H PT INR Magnesium 10/07/18 04:45 WBC Plt Count Neutrophils % (Manual) PT INR Magnesium 1.9 Radiology Reviewed by me: Yes (PCXR - perihilar infiltrates, lines/tubes in place) EKG Reviewed by me: Yes (Tele - SR) Phys Exam - Physical Examination [facility]ate [facility], ETT in place bi-temporal wasting HEENT: PERRLA, sclera anicteric, oral pharynx no lesions Neck: no nodes, no JVD, supple, full ROM Respiratory: no wheezing, no rales, no rhonchi, clear to auscultation bilateral S1, S2 Cardiovascular: RRR, no significant murmur, no rub, gallop obese, mild fluid wave diminished bowel sounds Gastrointestinal: non-tender, positive bowel sounds Musculoskeletal: no edema, pulses present does not follow commands Skin: normal turgor, cap refill <2 seconds Deviation from normal: Simpson with dark urine Dx/Plan (1) Acute respiratory failure with hypoxia Code(s): J96.01 - ACUTE RESPIRATORY FAILURE WITH HYPOXIA Status: Acute Comment: Continue AC and titrate to clinical response, FIO2 30%, serial ABG's, PCXR in am, not weanable (2) Acute metabolic encephalopathy Code(s): G93.41 - METABOLIC ENCEPHALOPATHY Status: Acute Comment: Multifactorial given infectious process, ascites, NEAL, resp failure, monitor for clinical improvement after weaning off sedation, persistent (3) Intestinal infection due to Campylobacter coli Code(s): A04.5 - CAMPYLOBACTER ENTERITIS Status: Acute Comment: Contiue Meropenem 1gm IV q8h (4) Neutrophilic leukocytosis Code(s): D72.9 - DISORDER OF WHITE BLOOD CELLS, UNSPECIFIED Status: Acute Comment: Improved, continue Meropenem, consider repeat of blood/ucx if WBC spikes, repeat CBC in am - Plan plan discussed w/ family, continue antibiotics, social worker palliative care, respiratory therapy, DVT proph w/SCDs Continue critical support -: Not weanable off mech ventilation -: Nutritional support with Glucerna 1.2 titrating to gastric residuals -: Continue Meropenem -: AM lab: CMP, CBC, ABG * Continue to monitor for clinical improvement, likely family will decide on withdrawal of care in the next 48-72h
[2018-10-10] MEDS: Sodium Chloride 0.45% 1,000 ML IV SCH ×3 (04:29→17:20)
[2018-10-10] MEDS: HumaLOG 300 UNITS/3 ML VIAL SC PRN ×4 (04:30→22:35)
[2018-10-10] MEDS: Propofol 1,000 MG/100 ML VIAL IV PRN (04:30)
[2018-10-10 05:02] LABS: ALT (SGPT) 34 U/L (8-55); AST (SGOT) 32 U/L (5-34); Albumin 2.2 g/dL (3.4-4.8); Alkaline Phosphatase 240 U/L (40-150); Anion Gap 12 mmol/L (10-20); BUN (Urea Nitrogen) 42 mg/dL (8.4-25.7); Bilirubin, Total 1.8 mg/dL (0.2-1.2); Calc. Creatinine Clearance 81 mL/min (70-130); Calcium 8.6 mg/dL (7.8-10.44); Carbon Dioxide 19 mmol/L (23-31); Chloride 109 mmol/L (98-107); Estimated GFR-MDRD Greater than 90; Globulin 3.7 g/dL (2.4-3.5); Glucose 302 mg/dL (83-110); Potassium 4.8 mmol/L (3.5-5.1); Protein, Total 5.9 g/dL (5.8-8.1); Sodium 135 mmol/L (136-145)
[2018-10-10 05:03] LABS: Band 1 % (5-11); Hemoglobin 13.4 g/dL (14.0-18.0); Lymphocytes 7 % (21-51); MDiff Complete? YES; Mean Corpuscular HGB CONC 31.5 g/dL (32.0-36.0); Mean Corpuscular Hemoglobin 28.9 pg (27.0-31.0); Mean Corpuscular Volume 91.8 fL (78.0-98.0); Monocytes 2 % (0-10); Neutrophil 90 % (42-75); Platelet Count 75 thou/uL (130-400); Platelet Morphology Comment Appears Decreased; RBC Distribution Width 19.1 % (11.5-14.5); RBC Morphology Normal; Red Blood Cell (RBC) Count 4.63 mill/uL (4.70-6.10); White Blood Cell (WBC) Count 19.4 thou/uL (4.8-10.8)
[2018-10-10] MEDS: MEROPENEM 1 GM/50 ML 1 GM in Premix Bag 1 BAG IVPB SCH ×3 (06:02→21:48)
[2018-10-10] MEDS: Levothyroxine Sodium 100 MCG TAB PO SCH (06:02)
[2018-10-10 07:22] LABS: Actual Bicarbonate (HCO3a) 17.2 mEq/L (22-28); Base Excess (BEa) -4.5 mEq/L (-2.0 to +3.0); Calcium, Ionized 1.28 mmol/L (1.12-1.30); Carboxyhemoglobin (COHb) 1.4 gm% (0.0-3.0); Hemoglobin (Hb) 14.7 g/dL (14.0-18.0); O2 Tension (PaO2) 89.2 mmHg (> 70.0); Potassium - ABG Lab 4.26 mmol/L (3.70-5.30); pH, Arterial 7.47 (7.35-7.45)
[2018-10-10 07:23] LABS: ALV-art Gradient 94.325 (0-20); CO2 Tension 24.3 mmHg (35.0-45.0); Puncture Site RRA
--- NOTE | 2018-10-10 07:52 | RAD ---
CHEST 1 VIEW: Date: 10/10/18 HISTORY: Pneumonia. COMPARISON: Radiograph prior day. FINDINGS: The patient is intubated with endotracheal tube tip projecting over the jorge. A weighted feeding tu be tip projects over the gastric antrum. There are faint radiopaque leads projecting over the left hemithorax that are in a different position than the prior examination. Bilateral perihilar opacities are similar. No pneumothorax. IMPRESSION: Endotracheal tube tip projecting over the jorge. Findings called to Nurse at 0730 hours. CODE CR. POS: HOME
[2018-10-10] MEDS: Insulin Glargine 30 UNITS in Pre-Filled Syringe 1 EACH SC SCH ×2 (08:49→21:25)
[2018-10-10] MEDS: Famotidine/PF 20 mg/2ml Vial SLOW IVP SCH (08:49)
--- NOTE | 2018-10-10 10:02 | PRG ---
DATE OF SERVICE: 10/09/2018 SUBJECTIVE: Nicole is unchanged. He remains mechanically ventilated. OBJECTIVE: VITAL SIGNS: His vital signs remain stable. LUNGS: Unchanged. He is developing recurrence of his ascites as expected. HEART: Unchanged. ABDOMEN: Unchanged. IMPRESSION: Peritonitis and encephalopathy, this is metabolic. Recurrence of ascites secondary to advanced cirrhosis. His intake and output positive 2831. There were no accurate weights recorded in the computer. I met with the family and answered all their questions. They want to consider withdrawing care possibly on Sunday. Job ID: [id number]
--- NOTE | 2018-10-10 15:55 | PRG ---
DATE OF SERVICE: 10/10/2018 SUBJECTIVE: Mr. Rivera is clinically unchanged. He opens his eyes to voice. OBJECTIVE: VITAL SIGNS: Heart rate is 83, blood pressure is 115/86, respiratory rate is 18. Minute volume is 7 to 8 L/minute. LUNGS: Distant clear. HEART: Regular rhythm. ABDOMEN: Distended on exam consistent with ascites. LABORATORY DATA: White count 19.4, hemoglobin 13.4, platelets 75,000. Sodium 135, potassium 4.8, chloride 109, bicarb 19, BUN 42, and creatinine 0.8. PH of 7.47, CO2 of 24, pO2 of 89. IMPRESSION: 1. Respiratory failure associated with extreme deconditioning. 2. Cirrhosis. 3. Spontaneous bacterial peritonitis. 4. Encephalopathy, metabolic and related to his peritonitis. Family decided they want to extubate him tomorrow afternoon. He may actually fly for a while. It is unclear how long he will survive. He is so weak. I would think it would be more than a few days max. Family has finally reached to the point where they realized that they are losing him. Job ID: [id number]
--- NOTE | 2018-10-10 18:51 | PDOC.PN ---
- Subjective Encounter Start Date: 10/10/18 Encounter Start Time: 14:40 Subjective: f/u for resp failure, Campylobacter colitis/peritonitis and end- stage -: cirrhosis with NEAL. No changes noted overnight. Remains on mech vent. - Objective Resuscitation Status - Order Detail: 10/08/18 09:54 Resuscitation Status Routine Resuscitation Status: DNAR: NO Resuscitation Discussed with: at bedside MAR Reviewed: Yes Vital Signs & Weight: Vital Signs (12 hours) Temp Pulse Resp BP Pulse Ox 10/10/18 18:48 88 10/10/18 16:00 97.6 F 27 H 10/10/18 14:30 83 115/86 10/10/18 14:00 31 H 10/10/18 12:00 98.0 F 26 H 10/10/18 10:40 72 108/70 10/10/18 10:00 25 H 10/10/18 08:00 97.6 F 23 H 100 10/10/18 06:55 72 103/66 Weight Admit Weight 136 lb Weight 156 lb 4.924 oz Most Recent Monitor Data Heart Rate from ECG 83 NIBP 113/75 NIBP BP-Mean 87 Respiration from ECG 27 SpO2 100 I&O: 10/09/18 10/10/18 10/11/18 06:59 06:59 06:59 Intake Total 3545.9 1649.6 Output Total 714 780 380 Balance 2831.9 869.6 -380 Result Diagrams: 10/10/18 04:31 10/10/18 04:31 Additional Labs: Accuchecks 10/10/18 10/10/18 10/10/18 15:58 10:29 04:30 POC Glucose 259 H 262 H 265 H 10/09/18 22:01 POC Glucose 232 H Microbiology 10/03/18 12:51 Nasopharyngeal swab Respiratory Virus Panel (PCR) - Final 09/29/18 18:51 Stool Stool Lactoferrin - Final 09/29/18 18:51 Stool Shiga Toxin Test - Final 09/29/18 18:51 Stool Stool Culture - Final 09/29/18 18:51 Stool C. difficile GDH Antigen & Toxins - Final 09/28/18 23:06 Urine voided Urine Culture - Final NO GROWTH AT 48 HOURS 10/06/18 10:00 Ascites Fluid Body Fluid Culture - Preliminary 10/06/18 10:00 Ascites Fluid Body Fluid Culture - Preliminary 10/03/18 15:20 Paracentesis Fluid Culture - Aspirate Body Fluid Culture - Preliminary 10/03/18 15:20 Paracentesis Fluid Culture - Aspirate Body Fluid Culture - Preliminary Laboratory Tests 10/03/18 10/03/18 10/04/18 07:01 11:51 09:20 WBC 21.9 H 21.9 H Plt Count 82 L 110 L Neutrophils % (Manual) 83 H 89 H PT 21.4 H INR 1.9 Magnesium 10/05/18 10/06/18 10/07/18 05:44 05:06 04:45 WBC 24.8 H 46.1 H* Plt Count 117 L 134 Neutrophils % (Manual) 92 H 85 H 86 H PT INR Magnesium 10/07/18 04:45 WBC Plt Count Neutrophils % (Manual) PT INR Magnesium 1.9 Radiology Reviewed by me: Yes (PCXR - bilat perihilar infiltrates, lines/tubes in place) EKG Reviewed by me: Yes (Tele - A-fib variable rate) Phys Exam - Physical Examination does not open eyes to name or stimulation, random lateral head movement ETT in place HEENT: PERRLA, oral pharynx no lesions Neck: no nodes, no JVD, supple, full ROM diminished in bases Respiratory: no rhonchi S1, S2 Cardiovascular: no significant murmur, no rub, irregular distended, mild fluid wave Gastrointestinal: non-tender, positive bowel sounds Musculoskeletal: no edema, pulses present sedate, random head movements Skin: normal turgor, cap refill <2 seconds Deviation from normal: Simpson with stiven urine Dx/Plan (1) Acute respiratory failure with hypoxia Code(s): J96.01 - ACUTE RESPIRATORY FAILURE WITH HYPOXIA Status: Acute Comment: Continue AC and titrate to clinical response, FIO2 30%, serial ABG's, PCXR in am, not weanable (2) Acute metabolic encephalopathy Code(s): G93.41 - METABOLIC ENCEPHALOPATHY Status: Acute Comment: Multifactorial given infectious process, ascites, NEAL, resp failure, persistent (3) Intestinal infection due to Campylobacter coli Code(s): A04.5 - CAMPYLOBACTER ENTERITIS Status: Acute Comment: Contiue Meropenem 1gm IV q8h (4) Neutrophilic leukocytosis Code(s): D72.9 - DISORDER OF WHITE BLOOD CELLS, UNSPECIFIED Status: Acute Comment: Improved, continue Meropenem, consider repeat of blood/ucx if WBC spikes, repeat CBC in am - Plan continue antibiotics, PT/OT, social service liaison, respiratory therapy, DVT proph w/ SCDs Continue critical support -: Continue Meropenem 1gm IV q8h -: Nutritional support with Glucerna 1.2 @ 30ml/h -: Family deciding to withdraw care and proceed with terminal extubation 10/11 -: PCXR in am * .
[2018-10-10] MEDS: Diltiazem HCl 125 MG, Admixture Fee 1 EACH in Sodium Chloride 0.9% 100 ML IVPB SCH (23:14)
[2018-10-11] MEDS: Sodium Chloride 0.45% 1,000 ML IV SCH ×2 (04:31→21:51)
[2018-10-11] MEDS: HumaLOG 300 UNITS/3 ML VIAL SC PRN (04:33)
[2018-10-11] MEDS: MEROPENEM 1 GM/50 ML 1 GM in Premix Bag 1 BAG IVPB SCH ×2 (05:57→13:34)
[2018-10-11] MEDS: Levothyroxine Sodium 100 MCG TAB PO SCH (05:58)
[2018-10-11 07:16] LABS: Actual Bicarbonate (HCO3a) 17.3 mEq/L (22-28); Base Excess (BEa) -4.7 mEq/L (-2.0 to +3.0); Calcium, Ionized 1.24 mmol/L (1.12-1.30); Carboxyhemoglobin (COHb) 1.4 gm% (0.0-3.0); Hemoglobin (Hb) 15.9 g/dL (14.0-18.0); O2 Tension (PaO2) 72.9 mmHg (> 70.0); Potassium - ABG Lab 4.11 mmol/L (3.70-5.30); pH, Arterial 7.45 (7.35-7.45)
--- NOTE | 2018-10-11 07:16 | RAD ---
RADIOGRAPH CHEST 1 VIEW: Date: 10/11/18 Time: 0440 hours HISTORY: 73-year-old male with pneumonia. Follow-up. COMPARISON: 10/10/18 at 0449 hours. FINDINGS: Mild patchy central and parahilar infiltrates are unchanged. Endotracheal tube has been slightly retr acted, and is now approximately 1.5 cm superior to the jorge. It is still directed mainly at the rig ht mainstem bronchus. No cardiomegaly or pulmonary edema. Lateral costophrenic angles are sharp. No p neumothorax. Dobbhoff feeding tube remains. IMPRESSION: 1. No interval change in the appearance of the lungs: bilateral central patchy infiltrates. 2. Slight interval retraction of the endotracheal tube, now 1.5 cm superior to the jorge. 3. No other interval change. JN [] POS: JIN
[2018-10-11 07:26] LABS: CO2 Tension 25.4 mmHg (35.0-45.0)
[2018-10-11 07:27] LABS: Puncture Site RRA
[2018-10-11] MEDS ORDERED: Famotidine/PF 20 mg/2ml Vial SLOW IVP SCH (09:00)
[2018-10-11] MEDS: Insulin Glargine 30 UNITS in Pre-Filled Syringe 1 EACH SC SCH ×2 (09:31→21:52)
--- NOTE | 2018-10-11 09:48 | PDOC.PN ---
- Subjective Encounter Start Date: 10/11/18 Encounter Start Time: 09:45 Mr. Rivera was seen today in follow-up of encephalopathy, and peritonitis. He has not made any significant change overnight. - Objective Resuscitation Status - Order Detail: 10/08/18 09:54 Resuscitation Status Routine Resuscitation Status: DNAR: NO Resuscitation Discussed with: at bedside MAR Reviewed: Yes Vital Signs & Weight: Vital Signs (12 hours) Temp Pulse Resp BP Pulse Ox 10/11/18 08:46 82 136/81 10/11/18 08:00 97.6 F 26 H 99 10/11/18 06:00 25 H 10/11/18 04:00 98.2 F 23 H 10/11/18 02:07 92 10/11/18 02:00 22 H 10/11/18 00:21 80 10/11/18 00:00 21 H 10/10/18 23:00 98.2 F 10/10/18 22:14 72 10/10/18 22:00 23 H Weight Admit Weight 136 lb Weight 156 lb 4.924 oz Most Recent Monitor Data Heart Rate from ECG 91 NIBP 128/68 NIBP BP-Mean 88 Respiration from ECG 25 SpO2 98 I&O: 10/10/18 10/11/18 10/12/18 06:59 06:59 06:59 Intake Total 1649.6 3313.7 Output Total 780 822 130 Balance 869.6 2491.7 -130 Result Diagrams: 10/10/18 04:31 10/10/18 04:31 Additional Labs: Accuchecks 10/11/18 10/10/18 10/10/18 04:30 22:14 15:58 POC Glucose 171 H 200 H 259 H 10/10/18 10:29 POC Glucose 262 H Phys Exam - Physical Examination HEENT: PERRLA Respiratory: no wheezing, no rales, no rhonchi, clear to auscultation bilateral Cardiovascular: RRR, no significant murmur, no rub Musculoskeletal: edema present Dx/Plan (1) Acute metabolic encephalopathy Code(s): G93.41 - METABOLIC ENCEPHALOPATHY Status: Acute Comment: Multifactorial given infectious process, ascites, NEAL, resp failure, persistent (2) Acute renal failure (ARF) Status: Acute Comment: due to volume depletion, creatinine resolving. (3) Intestinal infection due to Campylobacter coli Code(s): A04.5 - CAMPYLOBACTER ENTERITIS Status: Acute Comment: Contiue Meropenem 1gm IV q8h (4) Liver cirrhosis secondary to nonalcoholic steatohepatitis (NEAL) Code(s): K75.81 - NONALCOHOLIC STEATOHEPATITIS (NEAL); K74.60 - UNSPECIFIED CIRRHOSIS OF LIVER Status: Chronic (5) Coagulopathy Status: Acute - Plan * Metabolic encephalopathy due to Campylobacter colitis and peritonitis with decompensated cirrhosis.- plan is for extubation today * His is aware he may not survive long following this. * Will provide medications for air hunger, pain, and anxiety as needed.
[2018-10-11] MEDS ORDERED: Morphine 10 MG/ML VIAL SLOW IVP SCH (11:00)
--- NOTE | 2018-10-11 11:12 | PRG ---
DATE OF SERVICE: 10/11/2018 SUBJECTIVE: Nicole's heart rate 82, blood pressure 136/81, respiratory rate from mechanical ventilation. Intake and output, positive 2491. His ascites is more prominent. OBJECTIVE: LUNGS: His lungs are clear. HEART: Regular rhythm. ABDOMEN: Soft. EXTREMITIES: No asymmetry or edema. LABORATORY DATA: There is no new lab. IMPRESSION AND PLAN: 1. End-stage cirrhosis. 2. End-stage deconditioning associated with cirrhosis. 3. Respiratory failure secondary to inability to handle secretions. Plan is to withdraw care later today and proceed forward with comfort measures. His wants him extubated after the grandson arrives. 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 Job ID: [id number]
[2018-10-11] MEDS: Morphine 10 MG/ML VIAL SLOW IVP PRN ×2 (17:13→23:15)
[2018-10-12] MEDS: Scopolamine 1.5 mg/72 hour Patch TOP PRN ×2 (01:37→04:27)
[2018-10-12] MEDS: Morphine 10 MG/ML VIAL SLOW IVP PRN (04:29)
[2018-10-12 07:46] VITALS: BP 97/58; TEMP 97.6
--- NOTE | 2018-10-12 17:43 | EKG ---
Test Reason : Blood Pressure : / mmHG Vent. Rate : 066 BPM Atrial Rate : 066 BPM P-R Int : 206 ms QRS Dur : 090 ms QT Int : 420 ms P-R-T Axes : 083 -11 138 degrees QTc Int : 440 ms Normal sinus rhythm Abnormal ECG Confirmed by YAN EVANGELISTA ([id number]), editorial project manager ALOK US ([id number]) on 10/12/2018 5:42:46 PM Referred By: Confirmed By:YAN EVANGELISTA
--- NOTE | 2018-10-12 18:19 | DIS ---
DATE OF ADMISSION: 09/28/2018 DATE OF DISCHARGE: 10/12/2018 SUMMARY: PRIMARY CARE: Dr. Shayan Brown. DATE OF : 10/12/2018. DIAGNOSES: Include, 1. Campylobacter peritonitis. 2. Campylobacter colitis. 3. Metabolic encephalopathy. 4. Cirrhosis due to nonalcoholic steatohepatitis. 5. Diabetes mellitus, type 2. 6. History of hypertrophic cardiomyopathy. 7. Hypothyroidism. CODE STATUS: DNAR. ALLERGIES: NO KNOWN DRUG ALLERGIES. PROCEDURES DONE DURING THE ADMISSION: The patient had a CT scan of the abdomen and pelvis, showing massive splenomegaly. There were free intraperitoneal fluid and pelvic fluid. There was marked thickening of the descending colon concerning for colitis. The patient had a CT scan of the brain, showing this was normal CT scan. The patient had an ultrasound-guided paracentesis. HOSPITAL COURSE: Mr. Rivera was a 73-year-old gentleman, who was admitted to the hospital with complaints of severe abdominal pain as well as diarrhea and generalized weakness. He had also recently recovered from influenza despite not taking Tamiflu. The patient became increasingly weak and needing assistance with transfers for short distances. He had previously been functional with all activities of daily living. The patient did not have bloody stools. He noted some diarrhea. He was admitted with infectious colitis and started on Cipro and Flagyl. The Gastroenterology Service was consulted, and stool was sent for Clostridium difficile as well as Campylobacter. Stool studies returned back positive for Campylobacter, and he was placed on a macrolide antibiotic. He was quite encephalopathic, in which he was confused and basically nonverbal, and for this reason, he was moved from the medical floor into the [facility], and an Infectious Disease consult was obtained due to concerns that this may be more than a Campylobacter infection. During this time, a Dobhoff tube was placed and he was started on lactulose for possible hepatic encephalopathy despite normal ammonia levels. These measures did not improve. There was concern that he could have a viral encephalitis given the recent influenza infection. For this reason, Dr. Murillo ordered a complete viral panel as well as a repeat influenza A and B. These were all negative, which essentially ruled out a viral encephalitis. He underwent a paracentesis due to decompensated cirrhosis and the development of fairly extensive ascites. It was suspected that the patient had a Campylobacter peritonitis as the white cells in the peritoneal aspirate was consistent with bacterial peritonitis. His antibiotics were changed from azithromycin to meropenem to cover for an aggressive strain of Campylobacter. Despite these measures of changing the antibiotics as well as giving lactulose for presumed hepatic encephalopathy, his condition continued to deteriorate. He required mechanical intubation due to respiratory failure, and despite continued treatment, the patient never improved with regard to his encephalopathy, and the family made the decision to terminally extubate the patient, and a day later, the patient as a result of severe Campylobacter peritonitis with severe encephalopathy superimposed on advanced liver disease. Job ID: [id number]
--- NOTE | 2018-10-14 17:28 | EKG ---
Test Reason : Blood Pressure : / mmHG Vent. Rate : 116 BPM Atrial Rate : 326 BPM P-R Int : 000 ms QRS Dur : 078 ms QT Int : 342 ms P-R-T Axes : 000 021 097 degrees QTc Int : 475 ms Atrial flutter with variable A-V block Nonspecific T wave abnormality Abnormal ECG When compared with ECG of 28-SEP-2018 20:43, (Unconfirmed) Atrial flutter has replaced Sinus rhythm Vent. rate has increased BY 50 BPM T wave inversion no longer evident in Lateral leads Confirmed by MALIK ROSAS ([id number]) on 10/14/2018 5:27:52 PM Referred By: LIU Confirmed By:MALIK ROSAS
== END 2018-10-12 09:35 | disposition expired | DRG 870 ==
LOC: ERS 20:20 → T4-A 22:02 → OBSVTOIN 22:02 → T4-A 09-29 18:07 → CCU 10-02 17:16 → IMCU/EMU 10-04 20:42 → CCU 10-05 20:29 → T4-B 10-11 20:49
PROVIDERS: ADMIT Internal Medicine; ATTEND Internal Medicine
PROC: 0DH67UZ Insertion of Feeding Device into Stomach, Via Natural or Artificial Opening (ICD-10-PCS; 2018-10-01)
PROC: 3E0G76Z Introduction of Nutritional Substance into Upper GI, Via Natural or Artificial Opening (ICD-10-PCS; 2018-10-02)
PROC: 5A1955Z Respiratory Ventilation, Greater than 96 Consecutive Hours (ICD-10-PCS; principal; 2018-10-05)
PROC: 0BH18EZ Insertion of Endotracheal Airway into Trachea, Via Natural or Artificial Opening Endoscopic (ICD-10-PCS; 2018-10-05)
PROC: 0BC68ZZ Extirpation of Matter from Right Lower Lobe Bronchus, Via Natural or Artificial Opening Endoscopic (ICD-10-PCS; 2018-10-05)
PROC: 0W9G3ZZ Drainage of Peritoneal Cavity, Percutaneous Approach (ICD-10-PCS; 2018-10-06)
DX: A41.9 Sepsis, unspecified organism (principal); G93.41 Metabolic encephalopathy; K65.2 Spontaneous bacterial peritonitis; J18.9 Pneumonia, unspecified organism; E43 Unspecified severe protein-calorie malnutrition; J96.21 Acute and chronic respiratory failure with hypoxia; A04.5 Campylobacter enteritis; N17.9 Acute kidney failure, unspecified; E87.1 Hypo-osmolality and hyponatremia; I42.2 Other hypertrophic cardiomyopathy; I85.00 Esophageal varices without bleeding; R18.8 Other ascites; K76.6 Portal hypertension; D62 Acute posthemorrhagic anemia; E87.2 Acidosis; D68.9 Coagulation defect, unspecified; Z66 Do not resuscitate; Z51.5 Encounter for palliative care; E86.0 Dehydration; K75.81 Nonalcoholic steatohepatitis (NASH); Z68.23 Body mass index [BMI] 23.0-23.9, adult; E11.9 Type 2 diabetes mellitus without complications; K21.9 Gastro-esophageal reflux disease without esophagitis; E03.9 Hypothyroidism, unspecified; E87.5 Hyperkalemia; K72.90 Hepatic failure, unspecified without coma; R53.81 Other malaise; R13.10 Dysphagia, unspecified; D69.6 Thrombocytopenia, unspecified; Z79.4 Long term (current) use of insulin; Z79.899 Other long term (current) drug therapy; Z98.890 Other specified postprocedural states; Z85.820 Personal history of malignant melanoma of skin; Z82.49 Family history of ischemic heart disease and other diseases of the circulatory system; Z83.3 Family history of diabetes mellitus; Z87.09 Personal history of other diseases of the respiratory system
CPT/HCPCS: 36415; 36416; 49083; 70450; 71045; 74018; 74177; 80048; 80053; 81003; 81015; 82042; 82140; 82274; 82607; 82746; 82805; 83605; 83630; 83690; 83735; 84100; 84157; 84443; 84484; 85007; 85025; 85027; 85060; 85610; 85730; 87045; 87046; 87070; 87086; 87205; 87324; 87449; 87633; 87899; 89051; 93005; 93010; 94002; 94003; 96361; 96365; 96367; 96375; J0456; J0744; J1630; J1825; J2060; J2185; J2270; J2405; J2543; J2704; J3010; J3370; J3430; J3480; J7050; P9047; Q9966; S0028